=== PATIENT | male | born 1950 | race Caucasian/White ===

== ENCOUNTER → 2016-05-24 | Outpatient (CLI) | payer MEDICARE, BC ==
[2016-05-24 08:29] LABS: Blood Urea Nitrogen 25 mg/dL (9-20); Non-African American GFR(MDRD) >60 (>60 ml/min/1.73 sqM)
--- NOTE | 2016-05-24 13:24 | MR ---
MRI brain with and without contrast history: Ataxia, numbness multiplanar multisequence and postcontrast images through the brain following 15 cc MultiHance IV No comparisons Pituitary, corpus callosum, cervical medullary junction, cerebellopontine angles are normal. The orbi ts show symmetric appearance. Mild inflammatory change present in the frontal sinus, ethmoid air cell s. There is no restricted diffusion to suggest subacute ischemia. Mild cortical atrophy is likely age -related. Brain signal is maintained. No hemorrhage or hydrocephalus. No abnormal enhancement followi ng contrast administration. IMPRESSION: No significant abnormality evident to account for patient's symptoms. Age-related atrophy .
== END | disposition home or self-care (01) ==
LOC: RADMRIMAIN 07:50
PROVIDERS: ATTEND Internal Medicine
DX: G31.1 Senile degeneration of brain, not elsewhere classified (principal)
CPT/HCPCS: 82565; 84520; 70553; 36415; A9577

== ENCOUNTER → 2016-10-03 | Outpatient (CLI) | payer MEDICARE, BC ==
--- NOTE | 2016-10-03 13:57 | XR ---
Abdomen HISTORY: Constipation Frontal view of the abdomen submitted on 2 images There is a dextroscoliosis centered at T12-L1. Multiple calcifications are present within the pelvis felt likely represent phleboliths, vascular calcifications. Lung bases not included on the exam. Ques tion some loss of height of the L2 vertebral body. No obstruction or pneumoperitoneum. IMPRESSION: Possible osteoporotic compression fracture. Nonobstructive bowel gas pattern.
== END | disposition home or self-care (01) ==
LOC: RADXRMAIN 11:42
PROVIDERS: ATTEND Internal Medicine
DX: R14.0 Abdominal distension (gaseous) (principal); K59.00 Constipation, unspecified
CPT/HCPCS: 74000

== ENCOUNTER → 2016-10-04 | Outpatient (CLI) | payer MEDICARE, BC ==
--- NOTE | 2016-10-04 15:00 | XR ---
Lumbar spine HISTORY: Back pain, M 53.9 3 views of the lumbar spine There is a mild dextroscoliosis centered at L1-2. Bone mineralization is reduced. Lumbar vertebral nanette dies show preserved height and alignment. Multilevel spondylosis is present. Some loss of disc height present at intervertebral levels. Sclerosis present in the posterior elements compatible with facet arthropathy. Vascular calcifications noted in the aorta. IMPRESSION: Degenerative disc disease and facet arthropathy. Scoliosis. Osteopenia.
--- NOTE | 2016-10-04 15:02 | XR ---
Thoracic spine HISTORY: Back pain, M 54.9 3 views of the thoracic spine Thoracic vertebral bodies show preserved height. There is an S-shaped thoracic scoliosis. Thoracic ve rtebral bodies show decreased mineralization, multilevel spondylosis. No paraspinal mass. IMPRESSION: Degenerative disc disease and scoliosis. Osteopenia.
== END | disposition home or self-care (01) ==
LOC: RADXRMAIN 13:40
PROVIDERS: ATTEND Internal Medicine
DX: M51.34 Other intervertebral disc degeneration, thoracic region (principal); M51.36 Other intervertebral disc degeneration, lumbar region; M46.86 Other specified inflammatory spondylopathies, lumbar region; M85.88 Other specified disorders of bone density and structure, other site; M41.9 Scoliosis, unspecified
CPT/HCPCS: 72072; 72100

== ENCOUNTER 2016-10-08 15:07 | Emergency (ER) | payer MEDICARE, BC ==
--- NOTE | 2016-10-08 15:38 | ED ---
General Adult HPI - General Stated complaint: depression Time Seen by Provider: 10/08/16 15:10 Source: patient, RN notes reviewed Mode of arrival: ambulatory Limitations: no limitations - History of Present Illness Initial comments: Chief complaint history of present illness this is a 66-year-old male with complaint of depression. Patient reports that he was advised by his family doctor to come the emergency room for evaluation. Patient reports driving and all of a sudden just starts crying. He has no particular read. He's had a history of depression. He does see a psychiatrist and a therapist. He is on medications that include lorazepam when necessary and Lexapro. He's been on the medications that have not helped past. denies being suicidal has no plan. - Related Data Home Medications Medication Instructions Recorded Confirmed Albuterol Inhaler [Ventolin Hfa 1 - 2 puff INHALATION RT-Q6H PRN 10/08/16 Inhaler] Dextroamphetamine/Amphetamine 30 mg PO QAM 10/08/16 10/08/16 [Adderall] Escitalopram Oxalate [Lexapro] 20 mg PO QAM 10/08/16 10/08/16 LORazepam [Ativan] 0.5 mg PO BID PRN 10/08/16 10/08/16 Latanoprost [Xalatan 0.005%] 1 drop BOTH EYES HS 10/08/16 10/08/16 Levothyroxine Sodium [Synthroid] 150 mcg PO MOTUWETHFRSA 10/08/16 10/08/16 Losartan [Cozaar] 50 mg PO QAM 10/08/16 10/08/16 Polyethylene Glycol 3350 [Miralax] 17 gm PO HS 10/08/16 10/08/16 Tamsulosin HCl [Flomax] 0.4 mg PO QAM 10/08/16 10/08/16 Timolol 0.5% Ophth Soln [Timoptic 1 drop BOTH EYES QA 10/08/16 10/08/16 0.5% Ophth Soln] Vitamin B Complex 1 cap PO QAM 10/08/16 10/08/16 Allergies Allergy/AdvReac Type Severity Reaction Status Date / Time Sulfa (Sulfonamide Allergy Rash/Hives Verified 10/08/16 15:13 Antibiotics) Review of Systems ROS Statement: Those systems with pertinent positive or pertinent negative responses have been documented in the HPI. Review of systems. The patient denying any headache or visual acuity changes no sore throat no GI/ problems no chest pain no neuro deficits. Psychologically the patient reports he is depressed, cries immediately without wheezing. All systems are reviewed. Past medical problems significant for bladder cancer first operated on in the year 1999 with a recurrent one year later. He has been cancer free for the past 16 years. The patient's other medical problems fibromyalgia, glaucoma, hypertension and hypothyroidism. surgeries as noted above. Family history mother had bladder cancer. His granddaughter bipolar. Patient denies any ALLERGIES. He quit smoking 30 years ago. He is to do IV drug abuse over 33 years ago has not done any since then. Drink alcohol socially. He does state that causes fibromyalgia-related take one [place], he does use marijuana, he reports ALLERGIES to sulfa drugs. ROS Other: All systems not noted in ROS Statement are negative. Past Medical History Past Medical History: Cancer, Fibromyalgia, Hypertension, Thyroid Disorder Additional Past Medical History / Comment(s): glaucoma History of Any Multi-Drug Resistant Organisms: None Reported Past Surgical History: Bladder Surgery Past Psychological History: Depression Smoking Status: Former smoker Past Alcohol Use History: None Reported Past Drug Use History: Marijuana General Exam Limitations: no limitations Course Vital Signs 10/08/16 15:10 Temperature 98.2 F Pulse Rate 70 Respiratory 20 Rate Blood Pressure 163/83 O2 Sat by Pulse 97 Oximetry Medical Decision Making - Medical Decision Making Breath alcohol was 0, urine triage positive for medications he does admit to taking benzodiazepines, amphetamine and marijuana. Patient had a conversation with the psychiatric nurse who spoke with the psychiatrist. The plant this time patient be discharged and to follow-up with therapist, and psychiatrist. The patient denies being suicidal. - Lab Data Lab Results 10/08/16 10/08/16 Range/Units 15:52 15:55 Urine Color Dark Yellow Urine Appearance Clear (Clear) Urine pH 5.5 (5.0-8.0) Ur Specific [place] 1.021 (1.001-1.035) Urine Protein Trace H (Negative) Urine Glucose (UA) Negative (Negative) Urine Ketones Negative (Negative) Urine Blood Negative (Negative) Urine Nitrite Negative (Negative) Urine Bilirubin Negative (Negative) Urine Urobilinogen <2.0 (<2.0) mg/dL Ur Leukocyte Esterase Trace H (Negative) Urine WBC 3 (0-5) /hpf Ur Squamous Epith Cells <1 (0-4) /hpf Urine Mucus Moderate H (None) /hpf Salicylates <1.0 mg/dL Urine Opiates Screen Not Detected (NotDetected) Ur Oxycodone Screen Not Detected (NotDetected) Urine Methadone Screen Not Detected (NotDetected) Ur Propoxyphene Screen Not Detected (NotDetected) Acetaminophen <10.0 ug/mL Ur Barbiturates Screen Not Detected (NotDetected) U Tricyclic Antidepress Not Detected (NotDetected) Ur Phencyclidine Scrn Not Detected (NotDetected) Ur Amphetamines Screen Detected H (NotDetected) U Methamphetamines Scrn Not Detected (NotDetected) U Benzodiazepines Scrn Detected H (NotDetected) Urine Cocaine Screen Not Detected (NotDetected) U Marijuana (THC) Screen Detected H (NotDetected) Disposition Clinical Impression: Depression Disposition: HOME SELF-CARE Condition: Fair Instructions: Depression (ED) Additional Instructions: Return emergency room if he have increased problems. Follow-up with the psychiatrist and therapist. Continue with home medications Referrals: Dc Arreola MD [Primary Care Provider] - 1-2 days Time of Disposition: 17:42
[2016-10-08 16:24] LABS: Appearance,Urine Clear (Clear); Bilirubin,Urine Negative (Negative); Glucose,Urine (UA) Negative (Negative); Ketones,Urine Negative (Negative); Leukocyte Esterase,Urine Trace (Negative); Mucus,Urine Moderate /hpf; Nitrite,Urine Negative (Negative); PH, Urine 5.5 (5.0-8.0); Particle Count 5862; Protein,Urine Trace (Negative); Specific Gravity,Urine 1.021 (1.001-1.035); Squamous Epithelial Cell,Urine <1 /hpf (0-4); UA Billing (MACRO vs. MICRO) MICRO; Urobilinogen,Urine <2.0 mg/dL (<2.0); WBC,Urine 3 /hpf (0-5)
[2016-10-08 16:31] LABS: Acetaminophen <10.0 ug/mL; Salicylate <1.0 mg/dL
[2016-10-08 18:01] VITALS: BP 148/78; PULSE 72; RESP 18; TEMP 98.7
== END 2016-10-08 18:00 | disposition home or self-care (01) ==
LOC: EC 15:07
DX: F32.9 Major depressive disorder, single episode, unspecified (principal); E07.9 Disorder of thyroid, unspecified; I10 Essential (primary) hypertension; H40.9 Unspecified glaucoma; Z87.891 Personal history of nicotine dependence; Z79.899 Other long term (current) drug therapy; Z88.2 Allergy status to sulfonamides
CPT/HCPCS: 36415; 80306; 81001; 82075; 83520; 99284

== ENCOUNTER 2017-03-06 12:55 | Inpatient (IN) | payer MEDICARE, BC ==
--- NOTE | 2017-03-06 14:26 | ED ---
General Adult HPI - General Chief complaint: Psychiatric Symptoms Stated complaint: Depression Time Seen by Provider: 03/06/17 14:13 Source: patient, family, RN notes reviewed Mode of arrival: ambulatory Limitations: no limitations - History of Present Illness Initial comments: Patient is a pleasant [age]-year-old male presenting to the emergency Department with depression. Symptoms have been present for the past couple of days. Patient was recently let go from his job. Patient has not gotten to bed. No eating or drinking for the past couple of days. Patient has no interest. Patient did not take his medicine yesterday however otherwise has been taking his medicines normally. No suicidal or homicidal thoughts. No physical complaints. No hallucinations. No alcohol or street drug use. - Related Data Home Medications Medication Instructions Recorded Confirmed Albuterol Inhaler [Ventolin Hfa 1 - 2 puff INHALATION RT-Q6H PRN 10/08/16 Inhaler] Dextroamphetamine/Amphetamine 30 mg PO QAM 10/08/16 03/06/17 [Adderall] Escitalopram Oxalate [Lexapro] 20 mg PO QAM 10/08/16 03/06/17 Latanoprost [Xalatan 0.005%] 1 drop BOTH EYES HS 10/08/16 03/06/17 Levothyroxine Sodium [Synthroid] 150 mcg PO MOTUWETHFRSA 10/08/16 03/06/17 Losartan [Cozaar] 50 mg PO QAM 10/08/16 03/06/17 Timolol 0.5% Ophth Soln [Timoptic 1 drop BOTH EYES QAM 10/08/16 03/06/17 0.5% Ophth Soln] Vitamin B Complex 1 cap PO QAM 10/08/16 03/06/17 Ascorbic Acid [Vitamin C] 500 mg PO DAILY 03/06/17 03/06/17 Cholecalciferol [Vitamin D3] 1,000 unit PO DAILY 03/06/17 03/06/17 LORazepam [Ativan] 1 mg PO TID PRN 03/06/17 03/06/17 Petty Carbonate 150 mg PO TID 03/06/17 03/06/17 Turmeric Root Extract [Turmeric] 500 mg PO DAILY 03/06/17 03/06/17 traZODone HCL 50 mg PO HS PRN 03/06/17 03/06/17 Allergies Allergy/AdvReac Type Severity Reaction Status Date / Time Sulfa (Sulfonamide Allergy Rash/Hives Verified 03/06/17 14:37 Antibiotics) Review of Systems ROS Statement: Those systems with pertinent positive or pertinent negative responses have been documented in the HPI. ROS Other: All systems not noted in ROS Statement are negative. Constitutional: Denies: fever Eyes: Denies: eye pain ENT: Denies: ear pain Respiratory: Denies: cough Cardiovascular: Denies: chest pain Endocrine: Denies: fatigue Gastrointestinal: Denies: abdominal pain Genitourinary: Denies: dysuria Musculoskeletal: Denies: back pain Skin: Denies: rash Neurological: Denies: headache Psychiatric: Reports: depression Past Medical History Past Medical History: Cancer, Fibromyalgia, Hypertension, Thyroid Disorder Additional Past Medical History / Comment(s): glaucoma History of Any Multi-Drug Resistant Organisms: None Reported Past Surgical History: Bladder Surgery Past Psychological History: Depression Smoking Status: Former smoker Past Alcohol Use History: None Reported Past Drug Use History: None Reported General Exam Limitations: no limitations General appearance: alert, in no apparent distress Head exam: Present: atraumatic Eye exam: Present: normal appearance, PERRL ENT exam: Present: normal oropharynx Neck exam: Present: normal inspection Respiratory exam: Present: normal lung sounds bilaterally Cardiovascular Exam: Present: regular rate, normal rhythm GI/Abdominal exam: Present: soft. Absent: tenderness Extremities exam: Present: normal inspection Neurological exam: Present: alert Psychiatric exam: Present: depressed Skin exam: Present: normal color Course Vital Signs 03/06/17 03/06/17 13:41 16:09 Temperature 98.4 F Pulse Rate 76 74 Respiratory 18 18 Rate Blood Pressure 212/105 187/95 O2 Sat by Pulse 97 97 Oximetry Medical Decision Making - Medical Decision Making Patient was seen by mental health services with plan for admission. Blood pressure has improved. - Lab Data Result diagrams: 03/06/17 14:35 03/06/17 14:35 Lab Results 03/06/17 03/06/17 03/06/17 Range/Units 14:35 14:35 14:35 WBC 8.6 (3.8-10.6) k/uL RBC 5.36 (4.30-5.90) m/uL Hgb 16.0 (13.0-17.5) gm/dL Hct 48.6 (39.0-53.0) % MCV 90.7 (80.0-100.0) fL MCH 29.8 (25.0-35.0) pg MCHC 32.9 (31.0-37.0) g/dL RDW 14.3 (11.5-15.5) % Plt Count 307 (150-450) k/uL Neutrophils % 70 % Lymphocytes % 21 % Monocytes % 6 % Eosinophils % 2 % Basophils % 0 % Neutrophils # 6.1 (1.3-7.7) k/uL Lymphocytes # 1.8 (1.0-4.8) k/uL Monocytes # 0.5 (0-1.0) k/uL Eosinophils # 0.2 (0-0.7) k/uL Basophils # 0.0 (0-0.2) k/uL Sodium 142 (137-145) mmol/L Potassium 4.3 (3.5-5.1) mmol/L Chloride 107 (98-107) mmol/L Carbon Dioxide 23 (22-30) mmol/L Anion Gap 12 mmol/L BUN 29 H (9-20) mg/dL Creatinine 1.30 H (0.66-1.25) mg/dL Est GFR (MDRD) Af Amer >60 (>60 ml/min/1.73 sqM) Est GFR (MDRD) Non-Af 55 (>60 ml/min/1.73 sqM) Glucose 100 H (74-99) mg/dL Calcium 9.9 (8.4-10.2) mg/dL Urine Color Yellow Urine Appearance Clear (Clear) Urine pH 5.0 (5.0-8.0) Ur Specific [place] 1.023 (1.001-1.035) Urine Protein Trace H (Negative) Urine Glucose (UA) Negative (Negative) Urine Ketones 2+ H (Negative) Urine Blood Negative (Negative) Urine Nitrite Negative (Negative) Urine Bilirubin Negative (Negative) Urine Urobilinogen <2.0 (<2.0) mg/dL Ur Leukocyte Esterase Small H (Negative) Urine RBC 1 (0-5) /hpf Urine WBC 7 H (0-5) /hpf Ur Squamous Epith Cells <1 (0-4) /hpf Amorphous Sediment Occasional H (None) /hpf Urine Mucus Occasional H (None) /hpf Urine Opiates Screen Detected H (NotDetected) Ur Oxycodone Screen Not Detected (NotDetected) Urine Methadone Screen Not Detected (NotDetected) Ur Propoxyphene Screen Not Detected (NotDetected) Ur Barbiturates Screen Not Detected (NotDetected) U Tricyclic Antidepress Not Detected (NotDetected) Ur Phencyclidine Scrn Not Detected (NotDetected) Ur Amphetamines Screen Detected H (NotDetected) U Methamphetamines Scrn Not Detected (NotDetected) U Benzodiazepines Scrn Detected H (NotDetected) Urine Cocaine Screen Not Detected (NotDetected) U Marijuana (THC) Screen Detected H (NotDetected) Serum Alcohol <10 mg/dL Disposition Clinical Impression: Depression Disposition: TRANSFER TO PSYCH HOSP/UNIT Referrals: Dc Arreola MD [Primary Care Provider] - 1-2 days Decision Time: 16:13
[2017-03-06 14:42] LABS: Basophils % (A) 0 %; Eosinophils # (A) 0.2 k/uL (0-0.7); Eosinophils % (A) 2 %; HCT 48.6 % (39.0-53.0); Lymphocytes # (A) 1.8 k/uL (1.0-4.8); Lymphocytes % (A) 21 %; MCH 29.8 pg (25.0-35.0); MCHC 32.9 g/dL (31.0-37.0); MCV 90.7 fL (80.0-100.0); Mean Platelet Volume 7.7; Monocytes # (A) 0.5 k/uL (0-1.0); Monocytes % (A) 6 %; Neutrophils # (A) 6.1 k/uL (1.3-7.7); Neutrophils % (A) 70 %; Platelet Count 307 k/uL (150-450); RBC 5.36 m/uL (4.30-5.90); RDW 14.3 % (11.5-15.5); WBC 8.6 k/uL (3.8-10.6)
[2017-03-06 14:45] LABS: Amorphous Sediment,Urine Occasional /hpf; Appearance,Urine Clear (Clear); Bilirubin,Urine Negative (Negative); Blood,Urine Negative (Negative); Color,Urine Yellow; Glucose,Urine (UA) Negative (Negative); Ketones,Urine 2+ (Negative); Leukocyte Esterase,Urine Small (Negative); Mucus,Urine Occasional /hpf; Nitrite,Urine Negative (Negative); Protein,Urine Trace (Negative); RBC,Urine 1 /hpf (0-5); Specific Gravity,Urine 1.023 (1.001-1.035); Squamous Epithelial Cell,Urine <1 /hpf (0-4); Urobilinogen,Urine <2.0 mg/dL (<2.0); WBC,Urine 7 /hpf (0-5)
[2017-03-06 14:54] LABS: Alcohol <10 mg/dL; Anion Gap 12 mmol/L; Blood Urea Nitrogen 29 mg/dL (9-20); Calcium 9.9 mg/dL (8.4-10.2); Carbon Dioxide 23 mmol/L (22-30); Chloride 107 mmol/L (98-107); Glucose 100 mg/dL (74-99); Potassium 4.3 mmol/L (3.5-5.1); Sodium 142 mmol/L (137-145)
[2017-03-06 14:58] LABS: Amphetamine Screen,Urine Detected (NotDetected); Barbiturate Screen,Urine Not Detected (NotDetected); Benzodiazepines Screen,Urine Detected (NotDetected); Cocaine Screen,Urine Not Detected (NotDetected); Methadone Screen, Urine Not Detected (NotDetected); Opiate Screen,Urine Detected (NotDetected); Oxycodone Screen, Urine Not Detected (NotDetected); Phencyclidine Screen,Urine Not Detected (NotDetected); Tricyclic Antidepressant,Urine Not Detected (NotDetected); Urn Cannabinoid Scrn Detected (NotDetected)
[2017-03-06] MEDS ORDERED: LORazepam 1 MG TAB PO STA (16:04)
[2017-03-06] MEDS ORDERED: LOSARTAN 25 MG TAB PO STA (16:13)
[2017-03-06 18:48] VITALS: RESP 16
[2017-03-06] MEDS ORDERED: LORazepam 1 MG TAB PO PRN (19:58)
[2017-03-06] MEDS ORDERED: ACETAMINOPHEN TAB 325 MG TAB PO PRN (19:58)
[2017-03-06] MEDS ORDERED: MAGNESIUM HYDROXIDE 2,400 MG/10 ML CUP PO PRN (19:58)
[2017-03-06] MEDS ORDERED: MAG HYDROX/AL HYDROX/SIMETH 30 ML CUP PO PRN (19:58)
[2017-03-06] MEDS ORDERED: ALBUTEROL INHALER 60 PUFF/8 GM INHALER INHALATION PRN (20:04)
[2017-03-06] MEDS: TAMSULOSIN 0.4 MG CAP.ER.24H PO SCH (20:48)
[2017-03-06] MEDS: LATANOPROST 0.005% OPHTH DROPS 2.5 ML BTL BOTH EYES SCH (20:49)
[2017-03-07] MEDS: LEVOTHYROXINE 75 MCG TAB PO SCH (06:09)
[2017-03-07] MEDS: LIDOCAINE 5% PATCH TOPICAL SCH (07:44)
[2017-03-07] MEDS ORDERED: LOSARTAN 50 MG TAB PO SCH (09:00)
[2017-03-07] MEDS ORDERED: ESCITALOPRAM 20 MG TAB PO SCH (09:00)
[2017-03-07] MEDS: TIMOLOL 0.5% OPHTH DROPS 5 ML BTL BOTH EYES SCH (09:59)
[2017-03-07 10:13] LABS: Lithium <0.2 mmol/L
[2017-03-07] MEDS ORDERED: PNEUMOCOCCAL VACC-PNEUMOVAX 23 25 MCG/0.5 ML VIAL IM ONE (10:30)
--- NOTE | 2017-03-07 11:51 | P.HP ---
Psychiatric H&P - . History & Physical: Allergies Allergy/AdvReac Type Severity Reaction Status Date / Time Sulfa (Sulfonamide Allergy Rash/Hives Verified 03/06/17 18:29 Antibiotics) olanzapine [From Zyprexa] AdvReac Rapid Verified 03/06/17 20:48 Heart Rate Vital Signs Temp 97.7 F 03/07/17 06:53 Pulse 70 03/07/17 06:53 Resp 16 03/07/17 06:53 BP 114/53 03/07/17 06:53 Pulse Ox 97 03/07/17 06:53 Intake & Output 03/06/17 03/07/17 03/07/17 18:59 06:59 18:59 Weight 84 kg Laboratory Last Values WBC 8.6 k/uL (3.8-10.6) 03/06/17 14:35 RBC 5.36 m/uL (4.30-5.90) 03/06/17 14:35 Hgb 16.0 gm/dL (13.0-17.5) 03/06/17 14:35 Hct 48.6 % (39.0-53.0) 03/06/17 14:35 MCV 90.7 fL (80.0-100.0) 03/06/17 14:35 MCH 29.8 pg (25.0-35.0) 03/06/17 14:35 MCHC 32.9 g/dL (31.0-37.0) 03/06/17 14:35 RDW 14.3 % (11.5-15.5) 03/06/17 14:35 Plt Count 307 k/uL (150-450) 03/06/17 14:35 Neutrophils % 70 % 03/06/17 14:35 Lymphocytes % 21 % 03/06/17 14:35 Monocytes % 6 % 03/06/17 14:35 Eosinophils % 2 % 03/06/17 14:35 Basophils % 0 % 03/06/17 14:35 Neutrophils # 6.1 k/uL (1.3-7.7) 03/06/17 14:35 Lymphocytes # 1.8 k/uL (1.0-4.8) 03/06/17 14:35 Monocytes # 0.5 k/uL (0-1.0) 03/06/17 14:35 Eosinophils # 0.2 k/uL (0-0.7) 03/06/17 14:35 Basophils # 0.0 k/uL (0-0.2) 03/06/17 14:35 Sodium 142 mmol/L (137-145) 03/06/17 14:35 Potassium 4.3 mmol/L (3.5-5.1) 03/06/17 14:35 Chloride 107 mmol/L (98-107) 03/06/17 14:35 Carbon Dioxide 23 mmol/L (22-30) 03/06/17 14:35 Anion Gap 12 mmol/L 03/06/17 14:35 BUN 29 mg/dL (9-20) H 03/06/17 14:35 Creatinine 1.30 mg/dL (0.66-1.25) H 03/06/17 14:35 Est GFR (MDRD) Af Amer >60 (>60 ml/min/1.73 sqM) 03/06/17 14:35 Est GFR (MDRD) Non-Af 55 (>60 ml/min/1.73 sqM) 03/06/17 14:35 Glucose 100 mg/dL (74-99) H 03/06/17 14:35 Calcium 9.9 mg/dL (8.4-10.2) 03/06/17 14:35 TSH 3.830 mIU/L (0.465-4.680) 03/07/17 09:29 Urine Color Yellow 03/06/17 14:35 Urine Appearance Clear (Clear) 03/06/17 14:35 Urine pH 5.0 (5.0-8.0) 03/06/17 14:35 Ur Specific [place] 1.023 (1.001-1.035) 03/06/17 14:35 Urine Protein Trace (Negative) H 03/06/17 14:35 Urine Glucose (UA) Negative (Negative) 03/06/17 14:35 Urine Ketones 2+ (Negative) H 03/06/17 14:35 Urine Blood Negative (Negative) 03/06/17 14:35 Urine Nitrite Negative (Negative) 03/06/17 14:35 Urine Bilirubin Negative (Negative) 03/06/17 14:35 Urine Urobilinogen <2.0 mg/dL (<2.0) 03/06/17 14:35 Ur Leukocyte Esterase Small (Negative) H 03/06/17 14:35 Urine RBC 1 /hpf (0-5) 03/06/17 14:35 Urine WBC 7 /hpf (0-5) H 03/06/17 14:35 Ur Squamous Epith Cells <1 /hpf (0-4) 03/06/17 14:35 Amorphous Sediment Occasional /hpf (None) H 03/06/17 14:35 Urine Mucus Occasional /hpf (None) H 03/06/17 14:35 Urine Opiates Screen Detected (NotDetected) H 03/06/17 14:35 Ur Oxycodone Screen Not Detected (NotDetected) 03/06/17 14:35 Urine Methadone Screen Not Detected (NotDetected) 03/06/17 14:35 Ur Propoxyphene Screen Not Detected (NotDetected) 03/06/17 14:35 Ur Barbiturates Screen Not Detected (NotDetected) 03/06/17 14:35 U Tricyclic Antidepress Not Detected (NotDetected) 03/06/17 14:35 Ur Phencyclidine Scrn Not Detected (NotDetected) 03/06/17 14:35 Ur Amphetamines Screen Detected (NotDetected) H 03/06/17 14:35 U Methamphetamines Scrn Not Detected (NotDetected) 03/06/17 14:35 U Benzodiazepines Scrn Detected (NotDetected) H 03/06/17 14:35 [place] <0.2 mmol/L 03/07/17 09:29 Urine Cocaine Screen Not Detected (NotDetected) 03/06/17 14:35 U Marijuana (THC) Screen Detected (NotDetected) H 03/06/17 14:35 Serum Alcohol <10 mg/dL 03/06/17 14:35 03/07/17 11:38 IDENTIFYING DATA: This patient is a 66-year-old male who has been admitted to the mental health unit through the emergency room for severe symptoms of depression. HPI: The patient presented to the emergency room with his with severe symptoms of depression. He states he has not been eating for 3 days he has been excessively sleeping and has not been getting out of bed. He has been tearful on a regular basis. 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 He states last Monday he was suddenly told he needed to leave and turn in his keys and they called the police to escort him out. He feels he was discriminated against because he told them he was depressed several months ago. He is not able to offer any other explanation as to why they would have let him go. He does have a history of major depressive episodes as we reviewed criteria. He states in the past others have considered him having bipolar 2 disorder but he states he never has had a hypomanic or manic episode. He reports at best he approaches a feeling of being "normal" but never hypomanic or manic. We carefully described to criteria of hypomania or tova during the session. He describes having symptoms of anxiety that are frequent and he describes them as a "knot in my stomach". He does not report excessive daily anxiety that is disproportionate to daily stressors. He endorses no panic attacks. He states "I've given up" but has no acute suicidal ideation. He is reporting no homicidal ideation intent or plan. He is endorsing no auditory or visual hallucinations or specific delusions. He reports having a firearm at home, an antique shotgun which he presumes would not function. PAST PSYCHIATRIC HISTORY: This is the patient's first inpatient psychiatric admission, no history of suicide attempts. He is currently working with a psychiatrist in [place] through [facility] and has seen her 3 times. He is prescribed Lexapro 20 mg daily lithium on 150 mg in the morning 300 mg in the evening Adderall 30 mg daily trazodone 50 mg daily Ativan 1 mg twice daily. His BUN and creatinine are elevated at 29 and 1.3 respectively. He states he's had no recent blood work pertaining to the use of lithium he reports no baseline labs were drawn. He previously had been prescribed Risperdal Lamictal Zyprexa Depakote and Geodon Abilify and Wellbutrin Celexa Cymbalta and Trintellix. He has been on the Lexapro approximate 4 years, he has been on the lithium 3-4 weeks. Trazodone is effective for his sleep. Prior to his current psychiatrist he worked with Dr. Suresh at the local [facility]. PMH: Fibromyalgia, recent shoulder injury, hepatitis C, glaucoma ALLERGIES: Sulfa, Zyprexa MEDICATIONS: As above CHEMICAL DEPENDENCY HISTORY: The patient has a known history of cocaine use disorder. He had used cocaine intravenously for 1 year approximate 33 years ago. He reports using marijuana nightly. His urine drug screen was positive for opiates and benzodiazepines marijuana and amphetamines. Again he is prescribed Adderall and Ativan. He states he was using [place] 10 mg for his shoulder pain. He states that in the past he had been to inpatient chemical dependency treatment 4 times. FAMILY PSYCHIATRIC HISTORY: His father was diagnosed with an unknown psychiatric illness and was hospitalized, no suicides in the family FAMILY CHEMICAL DEPENDENCY HISTORY: His father was known to have an alcohol use disorder SOCIAL HISTORY: The patient is 66 years old he's been for 42 years and characterizes his marriage as being "good". He has 2 stepchildren and 1 biologic daughter. He has no history of service. He has his pharmacy degree from [employer] and also a master's in clinical psychology from [employer] he has 1 sister. 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 He resides with his . He reports one arrest for possession of marijuana several years ago, no abuse history reported. MENTAL STATUS EXAM: The patient is a male appearing his stated age he is dressed in his own clothing he wears eyeglasses he seated calmly. He is quiet and soft-spoken but does participate in the interview appropriately. He endorses a depressed mood he demonstrates brief tearfulness during the session. He otherwise maintains a bland affect. He endorses some hopelessness thinking but no acute suicidal ideation he endorses no homicidal ideation at this time. He is reporting no auditory or visual hallucinations or specific delusions there is no observable evidence of psychosis. Thought process is linear and goal-directed. He demonstrates no tangential thinking loose associations or flight of ideas. There is no current evidence of hypomania or tova. He is oriented to person place and date. He is able spell world forwards and backwards. He demonstrates no verbal or physical aggressiveness and he demonstrates no abnormal involuntary movements. STRENGTHS/WEAKNESSES: Strengths: Housing, support from spouse weaknesses: Recent termination from volunteer work INTELLECTUAL FUNCTIONING: Above average IMPRESSIONS: [] 1. Major depressive disorder recurrent severe without psychosis, rule out bipolar depression, anxiety unspecified, rule out generalized anxiety disorder, cocaine use disorder, rule out marijuana use disorder 2. Medical comorbidities including fibromyalgia, hepatitis C, history of shoulder injury 3. Recent termination from volunteer work precipitating crisis PLAN: The patient has been admitted to the mental health unit he is here voluntarily. We reviewed his presenting symptoms and medication options. As his BUN and creatinine were elevated we have held the lithium. He is encouraged to hydrate we will recheck his labs tomorrow. We will consider restarting lithium if appropriate. We have decided we will cross taper off of Lexapro and onto Zoloft. We will prescribe Zoloft to address depressive and anxiety symptoms. His Adderall will be discontinued. His blood pressure was remarkably elevated upon admission to the hospital and that has been slowly improving. Trazodone will be continued 50 mg at bedtime. Ativan is available 1 mg up to twice daily he is encouraged to minimize that as much is possible. Social work will meet with the patient to complete a psychosocial assessment. He will be seen by internal medicine for routine history and physical exam. We will involve family in treatment and discharge planning as he will allow. We will monitor him for safety and encourage his full participation in the milieu.
[2017-03-07 12:34] LABS: Anion Gap 10 mmol/L; Blood Urea Nitrogen 33 mg/dL (9-20); Calcium 9.7 mg/dL (8.4-10.2); Carbon Dioxide 24 mmol/L (22-30); Chloride 103 mmol/L (98-107); Glucose 213 mg/dL (74-99); Potassium 4.4 mmol/L (3.5-5.1); Sodium 137 mmol/L (137-145)
[2017-03-07] MEDS: ASCORBIC ACID 500 MG TAB PO SCH (12:51)
[2017-03-07] MEDS: CHOLECALCIFEROL 1,000 UNIT TAB PO SCH (12:52)
[2017-03-07] MEDS: B COMPLEX-VIT C-VIT E-ZINC 1 EACH TAB PO SCH (12:52)
--- NOTE | 2017-03-07 13:32 | P.MDCNMH ---
History of Present Illness H&P Date: 03/07/17 Chief Complaint: Depression This is a 66-year-old male patient of Dr. Escamilla with a past medical history of fibromyalgia and chronic fatigue syndrome, hypertension, hypothyroidism, glaucoma, hepatitis C to be seen by Dr. 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 Patient states that he has been depressed and very stressed as he has been doing work at [employer] for 12 years and suddenly they told him that he had to leave and could not come back. He states that he slept for 2 days because he was so depressed and ended up having a blood pressure of 200 systolic. Patient has not been taking his medications. Family brought him into [facility] emergency center. Blood pressure was 212/105 and creatinine was 1.3. Patient denies any kidney problems in the past but he states that his urine has been dark and he has not been drinking any water for the past 2 days. Patient was given oral losartan in the emergency center and had not been admitted to the mental health unit. Patient also states that he hurt his shoulder when he was moving furniture and fell on couple weeks ago and has taken [place] for this. Urine drug screen is positive for opiates, amphetamines, benzodiazepines, marijuana. Review of Systems All systems: negative Constitutional: Reports poor appetite, Denies chills, Denies fever Eyes: denies blurred vision, denies pain Ears, nose, mouth and throat: Denies headache, Denies sore throat Cardiovascular: Denies chest pain, Denies decreased exercise tolerance, Denies dyspnea on exertion, Denies edema, Denies leg edema, Denies lightheadedness, Denies shortness of breath, Denies syncope Respiratory: Denies cough, Denies cough with sputum, Denies dyspnea, Denies excessive sputum, Denies hemoptysis, Denies home oxygen Gastrointestinal: Reports loss of appetite, Denies abdominal pain, Denies diarrhea, Denies jaundice, Denies nausea, Denies vomiting Genitourinary: Denies dysuria Musculoskeletal: Denies myalgias Integumentary: Denies pruritus, Denies rash Neurological: Denies numbness, Denies weakness Psychiatric: Reports depression, Reports hypersomnia, Denies anxiety Endocrine: Denies fatigue, Denies weight change Past Medical History Past Medical History: Cancer, Fibromyalgia, Hypertension, Thyroid Disorder Additional Past Medical History / Comment(s): glaucoma, recent diagnosis of hepatitis C to follow with Dr. Deras History of Any Multi-Drug Resistant Organisms: None Reported Past Surgical History: Bladder Surgery, Tonsillectomy Additional Past Surgical History / Comment(s): Bladder surgery: 2003-Tumors removed. Past Anesthesia/Blood Transfusion Reactions: No Reported Reaction Past Psychological History: Depression Smoking Status: Former smoker Past Alcohol Use History: None Reported Additional Past Alcohol Use History / Comment(s): Patient was a smoker one and half packs per day for 15 years and quit about 30 years ago. He denies any alcohol use. 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 He does use marijuana daily to help him sleep and he has a medical marijuana card. Patient was at home with his . Past Drug Use History: Marijuana Additional Drug Use History / Comment(s): UDS + THC, benzos, opiates, amphetamines, - Past Family History Father Family Medical History: No Reported History Additional Family Medical History / Comment(s): Father from heart failure. Mother Family Medical History: Cancer Additional Family Medical History / Comment(s): at age 84 from lung cancer. Sister(s) Additional Family Medical History / Comment(s): Patient has 1 sister with no major medical problems. He does not have any brothers. Patient has 2 daughters and 1 son with no major medical problems. Medications and Allergies Home Medications Medication Instructions Recorded Confirmed Type Albuterol Inhaler [Ventolin Hfa 1 - 2 puff INHALATION RT-Q6H PRN 10/08/16 History Inhaler] Dextroamphetamine/Amphetamine 30 mg PO QAM 10/08/16 03/06/17 History [Adderall] Escitalopram Oxalate [Lexapro] 20 mg PO QAM 10/08/16 03/06/17 History Latanoprost [Xalatan 0.005%] 1 drop BOTH EYES HS 10/08/16 03/06/17 History Levothyroxine Sodium [Synthroid] 150 mcg PO MOTUWETHFRSA 10/08/16 03/06/17 History Losartan [Cozaar] 50 mg PO QAM 10/08/16 03/06/17 History Timolol 0.5% Ophth Soln [Timoptic 1 drop BOTH EYES QAM 10/08/16 03/06/17 History 0.5% Ophth Soln] Vitamin B Complex 1 cap PO QAM 10/08/16 03/06/17 History Ascorbic Acid [Vitamin C] 500 mg PO DAILY 03/06/17 03/06/17 History Cholecalciferol [Vitamin D3] 1,000 unit PO DAILY 03/06/17 03/06/17 History LORazepam [Ativan] 1 mg PO BID 03/06/17 03/06/17 History Levothyroxine Sodium [Synthroid] 75 mcg PO TAYLOR 03/06/17 03/06/17 History [place] Carbonate 150 mg PO DAILY 03/06/17 03/06/17 History [place] Carbonate 300 mg PO HS 03/06/17 03/06/17 History Tamsulosin HCl [Flomax] 0.4 mg PO HS 03/06/17 03/06/17 History Turmeric Root Extract [Turmeric] 500 mg PO DAILY 03/06/17 03/06/17 History traZODone HCL 50 mg PO HS PRN 03/06/17 03/06/17 History Allergies Allergy/AdvReac Type Severity Reaction Status Date / Time Sulfa (Sulfonamide Allergy Rash/Hives Verified 03/06/17 18:29 Antibiotics) olanzapine [From Zyprexa] AdvReac Rapid Verified 03/06/17 20:48 Heart Rate Physical Exam Vitals: Vital Signs Temp Pulse Pulse Resp BP BP Pulse Ox 03/07/17 06:53 97.7 F 70 16 114/53 97 03/06/17 18:47 99.1 F 81 16 166/95 97 03/06/17 18:03 97.6 F 73 18 172/89 98 03/06/17 16:09 74 18 187/95 97 03/06/17 13:41 98.4 F 76 18 212/105 97 Intake and Output 03/06/17 03/07/17 03/07/17 22:59 06:59 14:59 Other: Weight 84 kg Gen: This is a 66-year-old male. He is cooperative. HEENT: Head is atraumatic, normocephalic. Pupils equal, round. Sclerae is anicteric. NECK: Supple. No JVD. No lymphadenopathy. No thyromegaly. LUNGS: Clear to auscultation. No wheezes or rhonchi. No intercostal retractions. HEART: Regular rate and rhythm. No murmur. ABDOMEN: Soft. Bowel sounds are present. No masses. No tenderness. EXTREMITIES: No pedal edema. No calf tenderness. NEUROLOGICAL: Patient is awake, alert and oriented x3. Cranial nerves 2 through 12 are grossly intact. Cranial Nerve Examination - Cranial Nerves Cranial Nerve II- Optic: Intact Cranial Nerve III- Oculomotor: Intact Cranial Nerve IV- Trochlear: Intact Cranial Nerve V- Trigeminal: Intact Cranial Nerve - Abducens: Intact Cranial Nerve VII- Facial: Intact Cranial Nerve VIII- Auditory: Intact Cranial Nerve IX- Glossopharyngeal: Intact Cranial Nerve X- Vagus: Intact Cranial Nerve XI- Accessory: Intact Cranial Nerve XII- Hypoglossal: Intact Results CBC & Chem 7: 03/06/17 14:35 03/07/17 09:29 Labs: Abnormal Lab Results - Last 24 Hours (Table) 03/06/17 03/06/17 Range/Units 14:35 14:35 BUN 29 H (9-20) mg/dL Creatinine 1.30 H (0.66-1.25) mg/dL Glucose 100 H (74-99) mg/dL Urine Protein Trace H (Negative) Urine Ketones 2+ H (Negative) Ur Leukocyte Esterase Small H (Negative) Urine WBC 7 H (0-5) /hpf Amorphous Sediment Occasional H (None) /hpf Urine Mucus Occasional H (None) /hpf Urine Opiates Screen Detected H (NotDetected) Ur Amphetamines Screen Detected H (NotDetected) U Benzodiazepines Scrn Detected H (NotDetected) U Marijuana (THC) Screen Detected H (NotDetected) Microbiology - Last 24 Hours (Table) 03/06/17 14:35 Urine Culture - Preliminary Urine,Clean Catch Assessment and Plan Plan: 1. Recurrent depression. Patient admitted to the mental health unit. Continue current plan of care per psychiatrist. 2. Accelerated hypertension secondary to noncompliance with medication. Losartan will be discontinued due to renal failure and patient started on Norvasc with parameters to hold if systolic blood pressure less than 110. 3. Acute kidney injury secondary to dehydration and poor oral intake. Patient encouraged to increase fluid intake. Losartan has been discontinued. 4. Hypothyroidism with normal TSH. Continue current dose of levothyroxine. 5. Glaucoma. Continue eyedrops. 6. Shoulder pain secondary to recent fall. Continue lidocaine patch. No [place]. 7. Fibromyalgia, stable. 8. Benign prostatic hypertrophy. Continue Flomax. Impression and plan of care have been directed as dictated by the signing physician. Alma Joel nurse practitioner acting as scribe for signing physician.
[2017-03-07] MEDS: TAMSULOSIN 0.4 MG CAP.ER.24H PO SCH (20:20)
[2017-03-07] MEDS: LATANOPROST 0.005% OPHTH DROPS 2.5 ML BTL BOTH EYES SCH (20:21)
[2017-03-07] MEDS: ACETAMINOPHEN TAB 500 MG TAB PO PRN (20:40)
[2017-03-07] MEDS: traZODone HCL 50 MG TAB PO PRN (21:35)
[2017-03-08] MEDS: LEVOTHYROXINE 75 MCG TAB PO SCH (05:39)
[2017-03-08] MEDS: ACETAMINOPHEN TAB 500 MG TAB PO PRN ×2 (06:05→16:36)
[2017-03-08] MEDS: LIDOCAINE 5% PATCH TOPICAL SCH (09:23)
[2017-03-08] MEDS: TIMOLOL 0.5% OPHTH DROPS 5 ML BTL BOTH EYES SCH (09:24)
[2017-03-08] MEDS: SERTRALINE 25 MG TAB PO SCH (09:25)
[2017-03-08] MEDS: amLODIPine 5 MG TAB PO SCH (09:25)
[2017-03-08] MEDS: ESCITALOPRAM 10 MG TAB PO SCH (09:25)
--- NOTE | 2017-03-08 09:26 | P.PN ---
Progress Note - Text Interval history: The patient is found in group he follows me to an interview room. He reports that he had some difficulty sleeping last night per staff reported 6 hours. He notes having a phone conversation with his which was supportive. He looks forward to her visit this evening. We reviewed her medication changes. His BUN is elevated creatinine has normalized he is trying to hydrate better. He reports eating breakfast this morning. He states he has no acute suicidal ideation and when he presented he does have thoughts of giving up. He states that he realizes he cannot do that and needs to process his grief further. Mental status exam: The patient is alert he seated calmly eye contact is appropriate. Speech is fluent spontaneous nonpressured. He reports a depressed mood he is endorsing no suicidal or homicidal ideation intent or plan. He is reporting no auditory or visual hallucinations or specific delusions there is no observed evidence of psychosis. He demonstrates no tangential thinking loose associations or flight of ideas. Insight and judgment are improving. He remains oriented to person place and date. Affect is constricted but demonstrate some mild range at times. Plan: The patient will continue on his current medications. We plan on discontinuing the Lexapro tomorrow and increasing the Zoloft tomorrow. We will have social work facilitate a support meeting involving his . We will monitor him for safety and encourage participation in the milieu. Depending on his clinical status he may be appropriate for discharge in the next 1-2 days.
[2017-03-08 11:16] LABS: Blood Urea Nitrogen 34 mg/dL (9-20)
[2017-03-08] MEDS: CHOLECALCIFEROL 1,000 UNIT TAB PO SCH (11:47)
[2017-03-08] MEDS: ASCORBIC ACID 500 MG TAB PO SCH (11:47)
[2017-03-08] MEDS: B COMPLEX-VIT C-VIT E-ZINC 1 EACH TAB PO SCH (11:47)
[2017-03-08] MEDS: TAMSULOSIN 0.4 MG CAP.ER.24H PO SCH (20:50)
[2017-03-08] MEDS: LATANOPROST 0.005% OPHTH DROPS 2.5 ML BTL BOTH EYES SCH (20:50)
[2017-03-08] MEDS: traZODone HCL 50 MG TAB PO PRN (20:50)
[2017-03-09] MEDS: ACETAMINOPHEN TAB 500 MG TAB PO PRN ×2 (00:10→10:56)
[2017-03-09] MEDS: LEVOTHYROXINE 75 MCG TAB PO SCH (06:31)
[2017-03-09 06:55] VITALS: TEMP 98.6
[2017-03-09] MEDS: LIDOCAINE 5% PATCH TOPICAL SCH (08:32)
[2017-03-09] MEDS: amLODIPine 5 MG TAB PO SCH (08:34)
[2017-03-09] MEDS: TIMOLOL 0.5% OPHTH DROPS 5 ML BTL BOTH EYES SCH (08:35)
[2017-03-09] MEDS: SERTRALINE 25 MG TAB PO SCH (08:36)
--- NOTE | 2017-03-09 09:07 | P.DS ---
Providers Date of admission: 03/06/17 18:10 Expected date of discharge: 03/09/17 Attending physician: Shawn Oakley Consults: 03/06/17 19:58 Consult Physician Routine Consulting Provider: Dc Arreola Consult Reason/Comments: medical management Do you want consulting provider notified?: Already Contacted Primary care physician: Dc Maxwell - Discharge Diagnosis(es) (1) Major depressive disorder, recurrent severe without psychotic features Current Visit: Yes Status: Acute Priority: High Hospital Course: Brief summary admission note: This patient is a 66-year-old male who is been admitted to the mental health unit through the emergency room for severe symptoms of depression. He had presented with his and I indicated he had not been eating for 3 days he had been excessively sleeping and has not been getting out of bed. He had been tearful constantly. 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 The previous Monday he states he was suddenly told to leave and the police were called to escort him out. He felt he was discriminated against because he hadn't spoken of his depression several months ago. For full details please refer to my psychiatric evaluation dated . Summary of hospital course: The patient was admitted to the mental health unit he signed in voluntarily. We reviewed his presenting symptoms and medication options. We entertain the idea of him having a bipolar 2 disorder however he did not indicate he has had hypomanic episodes. He referred to episodes of "high" but really this seemed to be an approximation to baseline or normal from the depression. He indicated he had been on Lexapro for 4 years and this did not seem to be improving his depression well enough. He had recently been placed on lithium as an augmentation strategy. He indicates no blood work had been drawn yet and here in the hospital he presented with an elevated BUN/ creatinine creatinine. These have remained elevated despite his efforts to hydrate. We discontinued the lithium. Lexapro was tapered off and we initiated Zoloft to address his symptoms of depression and anxiety. Trazodone was continued at bedtime. Ativan was continued as needed but he is encouraged to minimize that whenever possible. The patient also presented to the hospital with a significantly elevated blood pressure of greater than 200/100. We discontinued the Adderall. Adderall may have been contributing to the elevated blood pressure and pulse. During the hospitalization he felt he did not need the Adderall to maintain alertness. Again we discussed removing it so that he is not on yet another habit-forming substances. He indicated the [place] was temporary for his shoulder injury. During the course of the hospitalization the patient noted a progressive improvement of his mood he felt as though the severe symptoms of depression were abating. He has had a visit from his social work will conduct a support meeting involving his . He has an outpatient therapist and psychiatrist whom he plans to continue working with. He has engaged in future oriented thinking. Mental status exam: The patient is alert he seated calmly he's pleasant and cooperative. Eye contact is appropriate speech is fluent spontaneous nonpressured. He indicates his mood is better he is endorsing no acute suicidal or homicidal ideation intent or plan. He endorses no auditory or visual hallucinations or any specific delusions and there is no observed evidence of psychosis. His thought process is linear and goal-directed he demonstrates no tangential thinking loose associations or flight of ideas. He remains oriented to person place and date. He demonstrates no verbal or physical aggressiveness. Affect is appropriately expressive. Hygiene and grooming are good. Impressions 1. Major depressive disorder recurrent severe without psychosis, rule out bipolar depression, anxiety and specified rule out generalized anxiety disorder , cocaine use disorder in remission, rule out cannabis use disorder 2. Medical comorbidities including fibromyalgia hepatitis C history of shoulder injury, recently elevated BUN/creatinine 3. Recent termination from volunteer work Plan: The patient will be discharged mental health unit today to return home residing with his . He will continue following up with his established therapist and psychiatrist through [facility] in [place]. He will continue on Zoloft and we will titrate this to 100 mg daily Lexapro has been discontinued. He will continue on trazodone 50 mg at bedtime as needed for sleep. He has Ativan prescribed 1 mg twice daily as needed he is encouraged to minimize that whenever possible. There is no imminent safety risk he is appropriate for continued care as an outpatient. He is instructed to return to the hospital with any acute safety concerns. He is instructed to follow-up with his primary care physician regarding his elevated BUN/creatinine creatinine and he indicates that he will. Patient Condition at Discharge: Stable Plan - Discharge Summary Discharge Rx Participant: No New Discharge Prescriptions: New Sertraline [Zoloft] 100 mg PO DAILY #30 tab traZODone HCL [Desyrel] 50 mg PO HS PRN #30 tab PRN Reason: Insomnia Continue Latanoprost [Xalatan 0.005%] 1 drop BOTH EYES HS Vitamin B Complex 1 cap PO QAM Timolol 0.5% Ophth Soln [Timoptic 0.5% Ophth Soln] 1 drop BOTH EYES QAM Albuterol Inhaler [Ventolin Hfa Inhaler] 1 - 2 puff INHALATION RT-Q6H PRN PRN Reason: Allergy Symptoms Levothyroxine Sodium [Synthroid] 150 mcg PO MOTUWETHFRSA Losartan [Cozaar] 50 mg PO QAM Turmeric Root Extract [Turmeric] 500 mg PO DAILY Cholecalciferol [Vitamin D3] 1,000 unit PO DAILY Ascorbic Acid [Vitamin C] 500 mg PO DAILY LORazepam [Ativan] 1 mg PO BID Tamsulosin HCl [Flomax] 0.4 mg PO HS Levothyroxine Sodium [Synthroid] 75 mcg PO TAYLOR Discontinued Escitalopram Oxalate [Lexapro] 20 mg PO QAM Dextroamphetamine/Amphetamine [Adderall] 30 mg PO QAM traZODone HCL 50 mg PO HS PRN PRN Reason: Insomnia [place] Carbonate 150 mg PO DAILY [place] Carbonate 300 mg PO HS Discharge Medication List Albuterol Inhaler [Ventolin Hfa Inhaler] 1 - 2 puff INHALATION RT-Q6H PRN [History] Latanoprost [Xalatan 0.005%] 1 drop BOTH EYES HS 10/08/16 [History] Levothyroxine Sodium [Synthroid] 150 mcg PO MOTUWETHFRSA 10/08/16 [History] Losartan [Cozaar] 50 mg PO QAM 10/08/16 [History] Timolol 0.5% Ophth Soln [Timoptic 0.5% Ophth Soln] 1 drop BOTH EYES QAM [History] Vitamin B Complex 1 cap PO QAM 10/08/16 [History] Ascorbic Acid [Vitamin C] 500 mg PO DAILY 03/06/17 [History] Cholecalciferol [Vitamin D3] 1,000 unit PO DAILY 03/06/17 [History] LORazepam [Ativan] 1 mg PO BID 03/06/17 [History] Levothyroxine Sodium [Synthroid] 75 mcg PO TAYLOR 03/06/17 [History] Tamsulosin HCl [Flomax] 0.4 mg PO HS 03/06/17 [History] Turmeric Root Extract [Turmeric] 500 mg PO DAILY 03/06/17 [History] Sertraline [Zoloft] 100 mg PO DAILY #30 tab 03/09/17 [Rx] traZODone HCL [Desyrel] 50 mg PO HS PRN #30 tab 03/09/17 [Rx] Follow up Appointment(s)/Referral(s): Larry Valle [Outside] - 03/15/17 3:00 pm (Lori) Dc Arreola MD [Primary Care Provider] - 1-2 days
[2017-03-09] MEDS: ESCITALOPRAM 10 MG TAB PO SCH (10:08)
[2017-03-09 10:40] VITALS: BP 141/72; PULSE 80
--- NOTE | 2017-03-09 13:14 | P.PN ---
Subjective This is a 66-year-old male patient of Dr. Arreola'kin with a past medical history of fibromyalgia and chronic fatigue syndrome, hypertension, hypothyroidism, glaucoma, hepatitis C to be seen by Dr. 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 Patient states that he has been depressed and very stressed as he has been doing work at [employer] for 12 years and suddenly they told him that he had to leave and could not come back. He states that he slept for 2 days because he was so depressed and ended up having a blood pressure of 200 systolic. Patient has not been taking his medications. Family brought him into [facility] emergency center. Blood pressure was 212/105 and creatinine was 1.3. Patient denies any kidney problems in the past but he states that his urine has been dark and he has not been drinking any water for the past 2 days. Patient was given oral losartan in the emergency center and had not been admitted to the mental health unit. Patient also states that he hurt his shoulder when he was moving furniture and fell on couple weeks ago and has taken [place] for this. Urine drug screen is positive for opiates, amphetamines, benzodiazepines, marijuana. 03/09: We have been asked to reassess the patient for redness to his left upper arm. Patient did receive a pneumonia vaccine 2 days ago in the left deltoid but there is no erythema or swelling at this area. This is most likely from a superficial phlebitis from previous IV site. Prescription for Duricef has been provided. Renal function shows a BUN of 34 and creatinine 1.37. Patient has been encouraged to increase oral intake at home. Patient is already scheduled for discharge. Objective - Vital Signs Vital signs: Vital Signs Temp 98.6 F 03/09/17 06:54 Pulse 80 03/09/17 08:35 Resp 16 03/09/17 08:35 BP 141/72 03/09/17 08:35 Pulse Ox 97 03/07/17 06:53 - Exam Gen: This is a 66-year-old male. He is cooperative. HEENT: Head is atraumatic, normocephalic. Pupils equal, round. Sclerae is anicteric. NECK: Supple. No JVD. No lymphadenopathy. No thyromegaly. LUNGS: Clear to auscultation. No wheezes or rhonchi. No intercostal retractions. HEART: Regular rate and rhythm. No murmur. ABDOMEN: Soft. Bowel sounds are present. No masses. No tenderness. EXTREMITIES: No pedal edema. No calf tenderness. Left upper arm has erythema and edema. No redness or erythema at the site of pneumonia vaccine in the left deltoid. NEUROLOGICAL: Patient is awake, alert and oriented x3. Cranial nerves 2 through 12 are grossly intact. - Labs CBC & Chem 7: 03/06/17 14:35 03/08/17 10:36 Assessment and Plan Plan: 1. Recurrent depression. Patient admitted to the mental health unit. Continue current plan of care per psychiatrist. 2. Accelerated hypertension secondary to noncompliance with medication. Losartan will be discontinued due to renal failure and patient started on Norvasc with parameters to hold if systolic blood pressure less than 110. 3. Acute kidney injury secondary to dehydration and poor oral intake. Patient encouraged to increase fluid intake. Losartan has been discontinued. 4. Hypothyroidism with normal TSH. Continue current dose of levothyroxine. 5. Glaucoma. Continue eyedrops. 6. Shoulder pain secondary to recent fall. Continue lidocaine patch. No [place]. 7. Fibromyalgia, stable. 8. Benign prostatic hypertrophy. Continue Flomax. 9. Left upper arm superficial phlebitis. Duricef prescription provided and sent to his pharmacy. Impression and plan of care have been directed as dictated by the signing physician. Alma Joel nurse practitioner acting as scribe for signing physician.
[2017-03-12] MEDS ORDERED: LEVOTHYROXINE 75 MCG TAB PO SCH (06:30)
== END 2017-03-09 12:45 | disposition home or self-care (01) | DRG 885 ==
LOC: EC 12:55 → 3MHU 18:10
PROVIDERS: ADMIT Psychiatry & Neurology Psychiatry; ATTEND Psychiatry & Neurology Psychiatry
PROC: 3E0234Z Introduction of Serum, Toxoid and Vaccine into Muscle, Percutaneous Approach (ICD-10-PCS; principal; 2017-03-06)
DX: F33.2 Major depressive disorder, recurrent severe without psychotic features (principal); N17.9 Acute kidney failure, unspecified; Z91.14 Patient's other noncompliance with medication regimen; I80.8 Phlebitis and thrombophlebitis of other sites; B19.20 Unspecified viral hepatitis C without hepatic coma; M79.7 Fibromyalgia; Z23 Encounter for immunization; E86.0 Dehydration; R53.82 Chronic fatigue, unspecified; E03.9 Hypothyroidism, unspecified; I10 Essential (primary) hypertension; H40.9 Unspecified glaucoma; N40.0 Benign prostatic hyperplasia without lower urinary tract symptoms; M25.519 Pain in unspecified shoulder; F11.21 Opioid dependence, in remission; Z79.899 Other long term (current) drug therapy; Z85.51 Personal history of malignant neoplasm of bladder; Z87.891 Personal history of nicotine dependence; Z88.2 Allergy status to sulfonamides; Z88.8 Allergy status to other drugs, medicaments and biological substances
CPT/HCPCS: 36415; 80048; 80178; 80306; 80320; 81001; 82075; 82565; 84443; 84520; 85025; 87086; 90732; 99285

== ENCOUNTER → 2017-04-13 | Outpatient (CLI) | payer MEDICARE, BC ==
[2017-04-13 10:35] LABS: Albumin 4.3 g/dL (3.5-5.0); Bilirubin, Delta 0.3 mg/dL (0.0-0.2); Bilirubin,Unconjugated 0.1 mg/dL (0.0-1.1); HCT 42.3 % (39.0-53.0); MCH 30.7 pg (25.0-35.0); MCHC 33.2 g/dL (31.0-37.0); MCV 92.3 fL (80.0-100.0); Mean Platelet Volume 7.1; Platelet Count 215 k/uL (150-450); RBC 4.58 m/uL (4.30-5.90); RDW 13.7 % (11.5-15.5); Total Bilirubin 0.4 mg/dL (0.2-1.3); Total Protein 7.2 g/dL (6.3-8.2); WBC 5.5 k/uL (3.8-10.6)
== END | disposition home or self-care (01) ==
LOC: LABWHC1 09:45
PROVIDERS: ATTEND Physician Assistant
DX: Z09 Encounter for follow-up examination after completed treatment for conditions other than malignant neoplasm (principal); Z86.19 Personal history of other infectious and parasitic diseases
CPT/HCPCS: 36415; 80076; 85027; 87522

== ENCOUNTER → 2017-08-17 | Outpatient (CLI) | payer MEDICARE, BC ==
[2017-08-17 10:12] LABS: Albumin 4.3 g/dL (3.5-5.0); Calcium 9.9 mg/dL (8.4-10.2); Magnesium 1.9 mg/dL (1.6-2.3); Potassium 4.7 mmol/L (3.5-5.1); Total Bilirubin 0.5 mg/dL (0.2-1.3); Total Protein 7.1 g/dL (6.3-8.2)
[2017-08-17 10:25] LABS: Appearance,Urine Clear (Clear); Bilirubin,Urine Negative (Negative); Blood,Urine Negative (Negative); Color,Urine Yellow; Glucose,Urine (UA) Negative (Negative); Ketones,Urine Negative (Negative); Leukocyte Esterase,Urine Negative (Negative); Nitrite,Urine Negative (Negative); PH, Urine 6.5 (5.0-8.0); Protein,Urine Negative (Negative); Specific Gravity,Urine 1.016 (1.001-1.035); Urobilinogen,Urine <2.0 mg/dL (<2.0)
[2017-08-17 10:28] LABS: T4, Free (Free Thyroxine) 0.84 ng/dL (0.78-2.19)
[2017-08-17 11:10] LABS: Basophils % (A) 1 %; Eosinophils # (A) 0.2 k/uL (0-0.7); Eosinophils % (A) 4 %; HCT 43.8 % (39.0-53.0); HGB 14.8 gm/dL (13.0-17.5); Lymphocytes # (A) 1.8 k/uL (1.0-4.8); Lymphocytes % (A) 27 %; MCH 30.4 pg (25.0-35.0); MCHC 33.7 g/dL (31.0-37.0); MCV 90.1 fL (80.0-100.0); Mean Platelet Volume 7.3; Monocytes # (A) 0.4 k/uL (0-1.0); Monocytes % (A) 5 %; Neutrophils # (A) 4.2 k/uL (1.3-7.7); Neutrophils % (A) 62 %; Platelet Count 251 k/uL (150-450); RBC 4.86 m/uL (4.30-5.90); WBC 6.7 k/uL (3.8-10.6)
[2017-08-17 20:00] LABS: Hemoglobin A1C 5.3 % (4.0-6.0)
[2017-08-18 14:37] LABS: Hepatits C Virus RNA Not detected (Not detected); Hepatits C Virus RNA, Quant <12 IU/mL (<12); LOG HCV IU/mL <1.08 (<1.08)
== END | disposition home or self-care (01) ==
LOC: LABWHC1 09:37
PROVIDERS: ATTEND Physician Assistant
DX: B18.2 Chronic viral hepatitis C (principal); I10 Essential (primary) hypertension; E78.00 Pure hypercholesterolemia, unspecified; F32.9 Major depressive disorder, single episode, unspecified; E03.9 Hypothyroidism, unspecified
CPT/HCPCS: 36415; 80053; 80061; 81003; 82550; 83036; 83735; 84439; 84443; 84550; 85025; 86803; 87522

== ENCOUNTER → 2017-11-15 | Outpatient (CLI) | payer MEDICARE, BC ==
--- NOTE | 2017-11-15 11:59 | XR ---
Right foot HISTORY: Heel pain, bone spur 3 views of the right foot There is a plantar calcaneal spur present. Bone mineralization and alignment are maintained. Mild ost eophytic change present the first metatarsophalangeal joint. No fracture or dislocation. Small ossifi c densities medial to the distal interphalangeal joints of the second and third digits are well-corti cated and not felt likely to be acute. IMPRESSION: Plantar calcaneal spur.
== END | disposition home or self-care (01) ==
LOC: RADXRMAIN 10:16
PROVIDERS: ATTEND Internal Medicine
DX: M77.31 Calcaneal spur, right foot (principal)

== ENCOUNTER 2018-04-03 09:32 | Day surgery (SDC) | payer MEDICARE, BC ==
[2018-03-30 10:23] VITALS: BMI 29.5
[2018-04-03] MEDS ORDERED: LACTATED RINGERS 1,000 ML IV SCH (10:36)
[2018-04-03 10:41] VITALS: RESP 18; TEMP 97.4
[2018-04-03] MEDS ORDERED: LACTATED RINGERS 1,000 ML IV ONE (11:06)
[2018-04-03] MEDS ORDERED: LIDOCAINE 1% 20 ML VIAL (10MG/ML) FOR IV START INTRADERMA ONE (11:06)
[2018-04-03] MEDS ORDERED: PROPOFOL 10 MG/ML 20 ML VIAL IV ONE (11:08)
--- NOTE | 2018-04-03 11:38 | P.PCN ---
Date of Procedure: 04/03/18 Procedure(s) Performed: Procedure: Total colonoscopy. Preoperative diagnosis: Screening for neoplasia. Postoperative diagnosis: Exam within normal limits. Preparation: HalfLytely prep. Sedation: Was provided by anesthesia. Brief clinical history: The patient is 67-year-old male who is scheduled for this evaluation for screening for neoplasia. He had two prior exams the last was around 8 years ago from his recollection. He has no abdominal complaints, bleeding or anemia. Procedure: With the patient on his left lateral decubitus position and after informed consent and adequate sedation, the perianal area was inspected and it did not show any fissures or fistulas. There were no masses felt on digital rectal examination. The Olympus CFH 190L video colonoscope was then inserted in the rectum in the usual fashion and advanced to the cecum. The mucosa appeared healthy. No polyps or tumors were seen or any obvious diverticular disease or other pathology. I retroflexed the endoscope in the rectum before the endoscope was withdrawn. The patient tolerated the procedure well. Plan: The patient was reassured. He will follow up with you as planned and I recommended repeat exam in 10 years.
[2018-04-03 12:01] VITALS: BP 117/79; PULSE 71
== END 2018-04-03 12:03 | disposition home or self-care (01) ==
LOC: ORWHC2ENDO 09:32
DX: Z12.11 Encounter for screening for malignant neoplasm of colon (principal); I10 Essential (primary) hypertension; M79.7 Fibromyalgia; N40.0 Benign prostatic hyperplasia without lower urinary tract symptoms; E07.9 Disorder of thyroid, unspecified; F39 Unspecified mood [affective] disorder; H40.9 Unspecified glaucoma; M10.9 Gout, unspecified; Z79.890 Hormone replacement therapy; Z79.899 Other long term (current) drug therapy; Z88.2 Allergy status to sulfonamides; Z88.8 Allergy status to other drugs, medicaments and biological substances; Z87.891 Personal history of nicotine dependence
CPT/HCPCS: J2704; G0121

== ENCOUNTER → 2018-09-14 | Outpatient (CLI) | payer MEDICARE, BC ==
--- NOTE | 2018-09-14 13:07 | ECHOS ---
STRESS ECHOCARDIOGRAM DATE OF SERVICE: 09/14/2018 INDICATIONS: Chest pain. MEDICATIONS: BASELINE HEART RATE: 73 BASELINE BLOOD PRESSURE: 117/60 MAXIMUM HEART RATE: 126 MAXIMUM BLOOD PRESSURE: 197/92 85% MPHR: 138 100% MPHR: 151 METS: 7.3 MAXIMUM STAGE REACHED: III TOTAL EXERCISE TIME: 7 minutes CLINICAL INFORMATION: Baseline EKG revealed normal sinus rhythm without significant ST-T changes. Patient walked on a standard Alex protocol for 7 minutes and achieved a maximal heart rate of 126 beats per minute which is almost 85% of predicted maximal. He developed some fatigue and shortness of breath, but did not have any angina or arrhythmia. EKG did not reveal any ST-segment changes to indicate ischemia. By EKG criteria, this is a negative stress test, although patient did not quite achieve 85% of predicted maximal. His heart rate was about 83% to 84%. In the recovery period, isolated PACs were noted. This is a negative stress test by EKG criteria. Baseline echo images revealed normal wall motion and wall thickening of all segments. At peak exercise there was good augmentation of left ventricular wall motion and wall thickening of all segments suggesting that there is no evidence of stress-induced ischemia on this study. FINAL IMPRESSION: 1. Fair exercise capacity. At peak exercise, he complained of some dizziness. There is no evidence to suggest ischemia at a heart rate of 84% of predicted maximal. 2. The stress echocardiogram was also normal without evidence of ischemia. MMVICKY / ISMAELN: [id number] /
== END | disposition home or self-care (01) ==
LOC: RADNMMAIN 08:53
PROVIDERS: ATTEND Internal Medicine
DX: R07.9 Chest pain, unspecified (principal)
CPT/HCPCS: 93351

== ENCOUNTER 2019-05-23 19:12 | Emergency (ER) | payer MEDICARE, BC ==
[2019-05-23 20:11] LABS: Basophils % (A) 0 %; Eosinophils # (A) 0.1 k/uL (0-0.7); Eosinophils % (A) 1 %; HCT 39.8 % (39.0-53.0); HGB 13.9 gm/dL (13.0-17.5); Lymphocytes # (A) 0.5 k/uL (1.0-4.8); Lymphocytes % (A) 10 %; MCH 30.2 pg (25.0-35.0); MCHC 34.9 g/dL (31.0-37.0); MCV 86.4 fL (80.0-100.0); Mean Platelet Volume 7.5; Monocytes # (A) 0.1 k/uL (0-1.0); Monocytes % (A) 1 %; Neutrophils # (A) 4.5 k/uL (1.3-7.7); Neutrophils % (A) 88 %; Platelet Count 278 k/uL (150-450); RBC 4.61 m/uL (4.30-5.90); RDW 13.6 % (11.5-15.5); WBC 5.1 k/uL (3.8-10.6)
--- NOTE | 2019-05-23 20:21 | XR ---
EXAMINATION TYPE: XR chest 1V portable DATE OF EXAM: 05/23/2019 HISTORY: Shortness of breath. COMPARISON: 02/05/2012 TECHNIQUE: Single view of the chest is submitted. FINDINGS: Demonstrated are scattered senescent parenchymal change. There is no evidence for focal infiltrate. The heart is stable. Hilar and mediastinal structures are within normal limits. Degenerative changes are seen of the dorsal spine. IMPRESSION: 1. Chronic changes without evidence for acute pulmonary disease.
[2019-05-23 20:27] LABS: Calcium 9.7 mg/dL (8.4-10.2); Magnesium 1.7 mg/dL (1.6-2.3); Potassium 3.9 mmol/L (3.5-5.1); Total Bilirubin 0.9 mg/dL (0.2-1.3); Total Protein 6.9 g/dL (6.3-8.2)
[2019-05-23 20:39] LABS: Partial Thromboplastin Time 24.1 sec (22.0-30.0); Prothrombin Time 10.1 sec (9.0-12.0)
[2019-05-23 20:40] LABS: C Reactive Protein 132.3 mg/L (<10.0)
[2019-05-23] MEDS ORDERED: VANCOMYCIN IV PER PHARMACY 1 EACH MISC MISCELLANE PRN (20:47)
[2019-05-23] MEDS ORDERED: CEFEPIME 2 GM in SODIUM CHLORIDE 0.9% 100 ML IVPB STA (20:47)
[2019-05-23] MEDS ORDERED: VANCOMYCIN 1,750 MG in SODIUM CHLORIDE 0.9% 500 ML 500 ML IVPB STA (20:58)
[2019-05-23 21:00] VITALS: BP 102/70; PULSE 104; RESP 20; TEMP 101.5
--- NOTE | 2019-05-23 21:06 | ED ---
General Adult HPI - General Chief complaint: Fever Stated complaint: Fever Time Seen by Provider: 05/23/19 19:24 Source: patient Mode of arrival: wheelchair Limitations: no limitations - History of Present Illness Initial comments: Dictation was produced using [employer] dictation software. please excuse any grammatical, word or spelling errors. This patient was cared for during a federal and state declared state of emergency secondary to Covid 19 Chief Complaint: 68-year-old male presents with cough, URI type symptoms. History of Present Illness: Patient is a 68-year-old male who presents with cough and URI type symptoms. Patient states she's been symptomatic for couple weeks. He is completely course of amoxicillin. He was told at an urgent care that he had a respiratory staph infection. He states that his symptoms has not improved. He is been getting fever cough shortness of breath and chest cramping for the last 48 hours. Patient was in [place] approximately 10 days ago where he was seen at the urgent care among several other individuals. At that time this test for flu and coronavirus and was negative. He's been taking antipyretics for his symptoms today. The ROS documented in this emergency department record has been reviewed and confirmed by me. Those systems with pertinent positive or negative responses have been documented in the HPI. All other systems are other negative and/or noncontributory. PHYSICAL EXAM: General Impression: Alert and oriented x3, not in acute distress HEENT: Normocephalic atraumatic, extra-ocular movements intact, pupils equal and reactive to light bilaterally, mucous membranes moist. Cardiovascular: Heart regular rate and rhythm, S1&S2 audible, no murmurs, rubs or gallops Chest: Able to complete full sentences, no retractions, no tachypnea Abdomen: Bowel sounds present, abdomen soft, non-tender, non-distended, no organomegaly Musculoskeletal: Pulses present and equal in all extremities, no peripheral edema Motor: no focal deficits noted Neurological: CN II-XII grossly intact, no focal motor or sensory deficits noted Skin: Intact with no visualized rashes Psych: Normal affect and mood ED course:68-year-old male presents with URI-type symptoms. As upon arrival shows tachycardia 11.5, heart rate of 104, rest of vital signs within acceptable limits. Laboratory evaluation obtained. CBC, coag panel, metabolic panel is unremarkable. Urinalysis shows 9 white blood cells. Patient denies any urinary symptoms. Still to follow-up with his urine cultures. Influenza test negative. Chest x-ray is unremarkable. Rotavirus result is positive. Patient reeval uated bedside. Still has a fever however he is not hypoxic and is not showing any signs of respiratory distress. Patient deemed stable for discharge with strict return precautions. Patient told to quarantine for 14 days. Patient given outpatient resources for Covid 19 - Related Data Home Medications Medication Instructions Recorded Confirmed Latanoprost [Xalatan 0.005%] 1 drop BOTH EYES HS 10/08/16 05/23/19 Losartan [Cozaar] 50 mg PO QAM 10/08/16 05/23/19 Vitamin B Complex 1 cap PO QAM 10/08/16 05/23/19 LORazepam [Ativan] 1 mg PO BID PRN 03/06/17 05/23/19 Tamsulosin HCl [Flomax] 0.4 mg PO HS 03/06/17 05/23/19 Ascorbic Acid [Vitamin C] 1,000 mg PO DAILY 03/30/18 05/23/19 Levothyroxine Sodium [Synthroid] 175 mcg PO DAILY 03/30/18 05/23/19 Sertraline HCl [Zoloft] 200 mg PO HS 03/30/18 05/23/19 Albuterol Inhaler [Ventolin Hfa 2 puff PO RT-Q4H PRN 05/23/19 05/23/19 Inhaler] Atorvastatin [Lipitor] 20 mg PO DAILY 05/23/19 05/23/19 Azithromycin [Zithromax Z-pack] See Taper PO DIRECTED 05/23/19 05/23/19 Codeine Phosphate/Guaifenesin 5 ml PO Q4H PRN 05/23/19 05/23/19 [Virtussin AC 10-100 mg/5 ml Lq] Dextroamphetamine/Amphetamine 10 mg PO TID 05/23/19 05/23/19 [Adderall] Fluticasone Nasal [place] [Flonase 2 spr EA NOSTRIL DAILY PRN 05/23/19 05/23/19 Nasal [place]] Sildenafil [Revatio] 20 mg PO BID PRN 05/23/19 05/23/19 Allergies Allergy/AdvReac Type Severity Reaction Status Date / Time Sulfa (Sulfonamide Allergy Rash/Hives Verified 05/23/19 21:16 Antibiotics) olanzapine [From Zyprexa] AdvReac Rapid Verified 05/23/19 21:16 Heart Rate Review of Systems ROS Statement: Those systems with pertinent positive or pertinent negative responses have been documented in the HPI. ROS Other: All systems not noted in ROS Statement are negative. Past Medical History Past Medical History: Cancer, Eye Disorder, Fibromyalgia, Hypertension, Thyroid Disorder Additional Past Medical History / Comment(s): GLAUCOMA, HEPATITIS C WITH [place] FEB 2018., ENVIRONMENTAL ALLERGIES., HX OF BLADDER CANCER., ENLARGED PROSTATE. History of Any Multi-Drug Resistant Organisms: None Reported Past Surgical History: Bladder Surgery, Tonsillectomy Additional Past Surgical History / Comment(s): Bladder surgery: 2003-Tumors removed. Past Anesthesia/Blood Transfusion Reactions: No Reported Reaction Past Psychological History: Anxiety, Depression Smoking Status: Former smoker Past Alcohol Use History: None Reported Past Drug Use History: Marijuana - Past Family History Father Family Medical History: No Reported History Additional Family Medical History / Comment(s): Father from heart failure. Mother Family Medical History: Cancer Additional Family Medical History / Comment(s): lung cancer Sister(s) Family Medical History: Cancer Additional Family Medical History / Comment(s): breast cancer General Exam Limitations: no limitations Course Vital Signs 05/23/19 05/23/19 19:18 20:58 Temperature 102.0 F H 101.5 F H Pulse Rate 123 H 104 H Respiratory 18 20 Rate Blood Pressure 145/67 102/70 O2 Sat by Pulse 98 Oximetry Medical Decision Making - Lab Data Result diagrams: 05/23/19 20:00 05/23/19 20:00 Lab Results 05/23/19 05/23/19 05/23/19 Range/Units 20:00 20:00 20:00 WBC 5.1 (3.8-10.6) k/uL RBC 4.61 (4.30-5.90) m/uL Hgb 13.9 (13.0-17.5) gm/dL Hct 39.8 (39.0-53.0) % MCV 86.4 (80.0-100.0) fL MCH 30.2 (25.0-35.0) pg MCHC 34.9 (31.0-37.0) g/dL RDW 13.6 (11.5-15.5) % Plt Count 278 (150-450) k/uL Neutrophils % 88 % Lymphocytes % 10 % Monocytes % 1 % Eosinophils % 1 % Basophils % 0 % Neutrophils # 4.5 (1.3-7.7) k/uL Lymphocytes # 0.5 L (1.0-4.8) k/uL Monocytes # 0.1 (0-1.0) k/uL Eosinophils # 0.1 (0-0.7) k/uL Basophils # 0.0 (0-0.2) k/uL PT 10.1 (9.0-12.0) sec INR 1.0 (<1.2) APTT 24.1 (22.0-30.0) sec Sodium 137 (137-145) mmol/L Potassium 3.9 (3.5-5.1) mmol/L Chloride 102 (98-107) mmol/L Carbon Dioxide 24 (22-30) mmol/L Anion Gap 11 mmol/L BUN 24 H (9-20) mg/dL Creatinine 1.35 H (0.66-1.25) mg/dL Est GFR (CKD-EPI)AfAm 61 (>60 ml/min/1.73 sqM) Est GFR (CKD-EPI)NonAf 53 (>60 ml/min/1.73 sqM) Glucose 96 (74-99) mg/dL Calcium 9.7 (8.4-10.2) mg/dL Magnesium 1.7 (1.6-2.3) mg/dL Total Bilirubin 0.9 (0.2-1.3) mg/dL AST 36 (17-59) U/L ALT 18 (4-49) U/L Alkaline Phosphatase 105 (38-126) U/L C-Reactive Protein 132.3 H (<10.0) mg/L Total Protein 6.9 (6.3-8.2) g/dL Albumin 4.0 (3.5-5.0) g/dL Urine Color Urine Appearance (Clear) Urine pH (5.0-8.0) Ur Specific [place] (1.001-1.035) Urine Protein (Negative) Urine Glucose (UA) (Negative) Urine Ketones (Negative) Urine Blood (Negative) Urine Nitrite (Negative) Urine Bilirubin (Negative) Urine Urobilinogen (<2.0) mg/dL Ur Leukocyte Esterase (Negative) Urine RBC (0-5) /hpf Urine WBC (0-5) /hpf Ur Squamous Epith Cells (0-4) /hpf Hyaline Casts (0-2) /lpf Urine Mucus (None) /hpf Influenza Type A RNA (Not Detectd) Influenza Type B (PCR) (Not Detectd) 05/23/19 05/23/19 Range/Units 20:00 20:53 WBC (3.8-10.6) k/uL RBC (4.30-5.90) m/uL Hgb (13.0-17.5) gm/dL Hct (39.0-53.0) % MCV (80.0-100.0) fL MCH (25.0-35.0) pg MCHC (31.0-37.0) g/dL RDW (11.5-15.5) % Plt Count (150-450) k/uL Neutrophils % % Lymphocytes % % Monocytes % % Eosinophils % % Basophils % % Neutrophils # (1.3-7.7) k/uL Lymphocytes # (1.0-4.8) k/uL Monocytes # (0-1.0) k/uL Eosinophils # (0-0.7) k/uL Basophils # (0-0.2) k/uL PT (9.0-12.0) sec INR (<1.2) APTT (22.0-30.0) sec Sodium (137-145) mmol/L Potassium (3.5-5.1) mmol/L Chloride (98-107) mmol/L Carbon Dioxide (22-30) mmol/L Anion Gap mmol/L BUN (9-20) mg/dL Creatinine (0.66-1.25) mg/dL Est GFR (CKD-EPI)AfAm (>60 ml/min/1.73 sqM) Est GFR (CKD-EPI)NonAf (>60 ml/min/1.73 sqM) Glucose (74-99) mg/dL Calcium (8.4-10.2) mg/dL Magnesium (1.6-2.3) mg/dL Total Bilirubin (0.2-1.3) mg/dL AST (17-59) U/L ALT (4-49) U/L Alkaline Phosphatase (38-126) U/L C-Reactive Protein (<10.0) mg/L Total Protein (6.3-8.2) g/dL Albumin (3.5-5.0) g/dL Urine Color Dark Yellow Urine Appearance Cloudy (Clear) Urine pH 5.5 (5.0-8.0) Ur Specific [place] 1.029 (1.001-1.035) Urine Protein 1+ H (Negative) Urine Glucose (UA) Negative (Negative) Urine Ketones Negative (Negative) Urine Blood Negative (Negative) Urine Nitrite Negative (Negative) Urine Bilirubin Negative (Negative) Urine Urobilinogen <2.0 (<2.0) mg/dL Ur Leukocyte Esterase Moderate H (Negative) Urine RBC 1 (0-5) /hpf Urine WBC 9 H (0-5) /hpf Ur Squamous [place]ith Cells <1 (0-4) /hpf Hyaline Casts 10 H (0-2) /lpf Urine Mucus Many H (None) /hpf Influenza Type A RNA Not Detected (Not Detectd) Influenza Type B (PCR) Not Detected (Not Detectd) Disposition Clinical Impression: COVID-19 virus detected Disposition: HOME SELF-CARE Condition: Good Instructions (If sedation given, give patient instructions): Fever in Adults (ED) Additional Instructions: Today you were evaluated for symptoms consistent with upper respiratory infection. There is concern that perhaps your symptomatology may represent Covid 19. Your are stable for discharge, however it is instructed to to seek immediate medical attention especially if you develop worsening symptoms especially respiratory distress. In the meantime please remain in quarantine for 14 days. For any other questions please contact Ailyn for here in emergency department or [facility] at [phone] Is patient prescribed a controlled substance at d/c from ED?: No Referrals: Dc Arreola MD [Primary Care Provider] - 1-2 days Time of Disposition: 21:36
[2019-05-23 21:18] LABS: Appearance,Urine Cloudy (Clear); Bilirubin,Urine Negative (Negative); Blood,Urine Negative (Negative); Color,Urine Dark Yellow; Glucose,Urine (UA) Negative (Negative); Hyaline Casts,Urine 10 /lpf (0-2); Ketones,Urine Negative (Negative); Leukocyte Esterase,Urine Moderate (Negative); Mucus,Urine Many /hpf; Nitrite,Urine Negative (Negative); PH, Urine 5.5 (5.0-8.0); Protein,Urine 1+ (Negative); RBC,Urine 1 /hpf (0-5); Specific Gravity,Urine 1.029 (1.001-1.035); Squamous Epithelial Cell,Urine <1 /hpf (0-4); Urobilinogen,Urine <2.0 mg/dL (<2.0); WBC,Urine 9 /hpf (0-5)
[2019-05-24] MEDS ORDERED: VANCOMYCIN 1,750 MG in SODIUM CHLORIDE 0.9% 500 ML 500 ML IVPB SCH (13:00)
== END 2019-05-23 21:52 | disposition home or self-care (01) ==
LOC: EC 19:12
DX: U07.1 COVID-19 (principal); I10 Essential (primary) hypertension; E07.9 Disorder of thyroid, unspecified; F41.9 Anxiety disorder, unspecified; F32.9 Major depressive disorder, single episode, unspecified; N40.0 Benign prostatic hyperplasia without lower urinary tract symptoms; Z79.890 Hormone replacement therapy; Z79.899 Other long term (current) drug therapy; Z88.2 Allergy status to sulfonamides; Z88.8 Allergy status to other drugs, medicaments and biological substances; Z87.891 Personal history of nicotine dependence; Z85.51 Personal history of malignant neoplasm of bladder
CPT/HCPCS: 36415; 71045; 80053; 81001; 83735; 85025; 85610; 85730; 86140; 87040; 87502; 87635; 93005; 99284

== ENCOUNTER → 2019-08-15 | Outpatient (CLI) | payer MEDICARE, BC ==
--- NOTE | 2019-08-15 10:02 | FL ---
EXAMINATION: Cervical and Thoracic Esophagram DATE OF EXAM: 08/15/2019 CLINICAL INDICATION: 68-year-old male R13.10, unspecified dysphagia. Reports intermittent sore throat and new heartburn. COMPARISON: None Total Fluoroscopy Time: 2 minutes 23 seconds Total images: 42 FINDINGS: The swallowing mechanism is normal and hypopharyngeal anatomy is preserved. There is moderate hypert rophy of the cricopharyngeus muscle. The cervical and thoracic portions have a normal course and caliber. Moderate tertiary peristaltic co ntractions are demonstrated with blunted secondary stripping waves. When the patient is supine, there is incomplete clearance of contrast from esophagus. The mucosa is normal and no persistent filling defect is encountered. There is a small sliding hiatal hernia and moderate to severe gastroesophageal reflux with combinatio n Valsalva and rightward turning maneuvers. IMPRESSION: 1. Small sliding hiatal hernia with moderate to severe gastroesophageal reflux. CP muscle hypertrophy is also seen which can serve as a protective mechanism. 2. Moderate dysmotility suggests presbyesophagus.
== END | disposition home or self-care (01) ==
LOC: RADUSWWP 08:50
PROVIDERS: ATTEND Internal Medicine
DX: R13.10 Dysphagia, unspecified (principal); K21.9 Gastro-esophageal reflux disease without esophagitis; K44.9 Diaphragmatic hernia without obstruction or gangrene
CPT/HCPCS: 74220

== ENCOUNTER → 2020-02-05 | Outpatient (CLI) | payer MEDICARE, BC ==
--- NOTE | 2020-02-05 15:27 | EEG ---
ELECTROENCEPHALOGRAM REPORT DATE OF SERVICE: 02/05/2020. CLINICAL HISTORY: This is a 69-year-old gentleman who had a COVID-19 positive since April of 2019, and since then the patient has had been having confusion. The video EEG was obtained to evaluate for seizures and epileptiform activity. RELEVANT MEDICATION: Unknown. EEG TYPE: A routine 21-channel EEG IS performed with video using the 10/20 electrode placement system. DESCRIPTION: Wakefulness and drowsiness are obtained. During wakefulness, there is a posterior- dominant rhythm of low voltage, reactive, well modulated, of 10-11 hertz activity over bilateral hemispheres. During drowsiness, there is slowing and attenuation of the background activity. There is no physiological stage II sleep. INTERICTAL AND ICTAL: None. ACTIVATION PROCEDURE: Photic stimulation did not evoke a posterior driving response. Hyperventilation is not performed. CLINICAL INTERPRETATION: This is a normal routine EEG. There are no focal slowing, epileptiform discharges or seizure during the study. Clinical correlation is recommended. MMVICKY / IJN: [id number] / MTDGómez
== END | disposition home or self-care (01) ==
LOC: NEUROMAIN 10:12
PROVIDERS: ATTEND Internal Medicine
DX: G93.49 Other encephalopathy (principal)
CPT/HCPCS: 95816

== ENCOUNTER → 2021-03-06 | Outpatient (CLI) | payer MEDICARE, BC ==
--- NOTE | 2021-03-07 14:49 | MR ---
EXAMINATION TYPE: MR angio head/neck wo con DATE OF EXAM: 03/06/2021 COMPARISON: None HISTORY: Vascular Headache TECHNIQUE: Time of flight images focusing on the [place] and neck were performed without con trast.. 2-D and 3-D postprocessing imaging is performed on an alternate workstation. FINDINGS: [place] shows patent anterior and posterior circulation. There is no evident disse ction, embolism, stenosis, or aneurysm. Common carotid arteries, internal and external carotid arteries are patent, there is no evident steno sis of the proximal internal carotid arteries by NASCET criteria. There is artifact present on the so urce images. Right vertebral artery is dominant. Left vertebral artery shows poor signal on the [place] M RA at the level of the foramen magnum and is not well seen within the neck. IMPRESSION: Poor signal involving the left vertebral artery, consider carotid Doppler or contrast-enh anced CTA or MRA for additional evaluation.
== END | disposition home or self-care (01) ==
LOC: RADMRIMAIN 08:48
PROVIDERS: ATTEND Internal Medicine
DX: G44.1 Vascular headache, not elsewhere classified (principal)
CPT/HCPCS: 70544; 70547

== ENCOUNTER 2021-03-31 19:00 | Emergency (ER) | payer MEDICARE, BC ==
[2021-03-31 19:05] VITALS: PULSE 84; RESP 20; TEMP 97.7
--- NOTE | 2021-03-31 20:59 | XR ---
EXAMINATION TYPE: XR knee complete LT DATE OF EXAM: 03/31/2021 COMPARISON: 12/05/2012 HISTORY: Knee pain TECHNIQUE: 3 views FINDINGS: There is no evidence of fracture nor dislocation. Joint spaces are normal. There is some sp urring on the superior patella. IMPRESSION: Negative left knee exam. No fracture. No change.
--- NOTE | 2021-03-31 21:02 | CT ---
EXAMINATION TYPE: CT brain andres [place] con DATE OF EXAM: 03/31/2021 COMPARISON: None HISTORY: fall head injury CT DLP: 1265.2 mGycm Automated exposure control for dose reduction was used. Ventricles have normal size. There is no mass effect or midline shift. There is no sign of intracrani al hemorrhage. There is some cerebral atrophy appropriate for age. Calvarium is intact. There is norm al aeration of the mastoid sinuses. The cervical vertebra have normal alignment. There is no compression fracture. Facet joints are intac t. There is multilevel cervical hypertrophic facet arthropathy. There is disc space narrowing and spu r formation at C5-6 and C6-7. IMPRESSION: Mild atrophy. No acute intracranial abnormality. Mild to moderate spondylotic changes in the cervical spine. No fracture.
--- NOTE | 2021-03-31 21:10 | CT ---
EXAMINATION TYPE: CT facial bones wo con DATE OF EXAM: 03/31/2021 COMPARISON: None HISTORY: Fall, head injury CT DLP: 1265.2 mGycm Automated exposure control for dose reduction was used. Images obtained from the bottom of the mandible to the top of the frontal sinuses without contrast. The mandibular ring appears intact. Temporomandibular joints appear normal. The zygomatic arches are normal. Maxilla is intact. There is normal aeration of the paranasal sinuses. Nasal bone appears inta ct. There is no evidence of orbital blowout fracture. Orbital margins are intact. There is no retro-o rbital mass. There are spondylotic changes in the cervical spine. The parotid and submandibular salivary glands appear intact. IMPRESSION: Negative CT scan of the facial bones. No fracture seen.
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
== END 2021-03-31 21:25 | disposition home or self-care (01) ==
LOC: EC 19:00
DX: S06.0X9A Concussion with loss of consciousness of unspecified duration, initial encounter (principal); E07.9 Disorder of thyroid, unspecified; I10 Essential (primary) hypertension; Z79.890 Hormone replacement therapy; Z88.8 Allergy status to other drugs, medicaments and biological substances; Z88.2 Allergy status to sulfonamides; W01.0XXA Fall on same level from slipping, tripping and stumbling without subsequent striking against object, initial encounter
CPT/HCPCS: 70450; 70486; 72125

== ENCOUNTER → 2021-04-21 | Outpatient (CLI) | payer MEDICARE, BC ==
[2021-04-21 23:51] LABS: Basophils # (A) 0.03 X 10*3/uL (0.00-0.10); Basophils % (A) 0.5 %; Eosinophils # (A) 0.17 X 10*3/uL (0.04-0.35); Eosinophils % (A) 2.8 %; HCT 39.7 % (39.6-50.0); HGB 13.1 g/dL (13.0-17.0); Immature Grans, Automated 0.3 %; Lymphocytes # (A) 2.06 X 10*3/uL (0.90-5.00); Lymphocytes % (A) 34.4 %; MCH 30.4 pg (27.0-32.0); MCV 92.1 fL (80.0-97.0); Monocytes # (A) 0.43 X 10*3/uL (0.20-1.00); Monocytes % (A) 7.2 %; NRBC Per 100 WBC 0 /100 WBCS (0.0-0.0); Neutrophils # (A) 3.27 X 10*3/uL (1.80-7.70); Neutrophils % (A) 54.8 %; Platelet Count 215 X 10*3/uL (140-440); RBC 4.31 X 10*6/uL (4.40-5.60); RDW 13.2 % (11.5-14.5); WBC 5.98 X 10*3/uL (4.50-10.00)
[2021-04-22 00:23] LABS: Erythrocyte Sedimentation Rate 1 mm/Hr (0-20)
[2021-04-22 03:20] LABS: C Reactive Protein <0.30 mg/dL (0.00-0.80)
[2021-04-22 03:50] LABS: Folate, Serum >20.00 ng/mL (4.40-31.00)
[2021-04-22 04:34] LABS: HIV 2 AB Non-Reactive (Non-Reactive); HIV AB P24 Non-Reactive (Non-Reactive); HIV P24 AG Non-Reactive (Non-Reactive)
[2021-04-22 15:13] LABS: Lyme IgG/IgM 2.25 Index
== END | disposition home or self-care (01) ==
LOC: LABWHC1 14:36
PROVIDERS: ATTEND Internal Medicine
DX: R41.3 Other amnesia (principal)
CPT/HCPCS: 36415; 82607; 82746; 84425; 84443; 85025; 85652; 86140; 86618; 86780; 87390

== ENCOUNTER 2021-06-15 15:56 | Emergency (ER) | payer MEDICARE, BC ==
[2021-06-15] MEDS ORDERED: DIPH,PERTUS(ACELL)TETVAC-LF 0.5 ML VIAL IM ONE (17:06)
[2021-06-15] MEDS ORDERED: GELATIN SPONGE,ABSORB (LARGE) 1 EACH SPONGE TOPICAL STA (17:06)
[2021-06-15] MEDS ORDERED: LIDOCAINE 1% INJ 10MG/ML (5 ML VIAL-PF) SQ ONE (17:06)
[2021-06-15] MEDS ORDERED: CEPHALEXIN 500 MG CAP PO STA (17:58)
--- NOTE | 2021-06-15 18:20 | XR ---
EXAMINATION TYPE: XR finger RT DATE OF EXAM: 06/15/2021 5:31 PM INDICATION: Patient age:Male; 70 years old; Reason for study: 4th digit laceration; PHH. COMPARISON: None TECHNIQUE: 3 views of the fourth digit were obtained. FINDINGS: Soft tissue laceration without evidence acute osseous pathology. There is chronic appearing calcific density along the ulnar aspect of the fourth digit middle phalanx head likely from remote i njury. Normal alignment of the visualized joints. No acute osseous pathology is identified. IMPRESSION: Fourth digit laceration without evidence for radiopaque foreign body or acute fracture.
[2021-06-15] MEDS ORDERED: BACITRACIN OINT 1 EACH PACKET TOPICAL ONE (18:22)
--- NOTE | 2021-06-15 18:22 | XR ---
EXAMINATION TYPE: XR hand complete LT DATE OF EXAM: 06/15/2021 5:31 PM INDICATION: Patient age:Male; 70 years old; Reason for study: laceration. COMPARISON: None TECHNIQUE: 3 views of the left hand were obtained. FINDINGS: Soft tissue defects involving the first second third digit distally. No evidence radiopaque foreign body or acute fracture. Normal alignment of the visualized joints. No acute osseous patholo gy is identified. No evidence of soft tissue swelling. IMPRESSION: 1. No evidence of acute fracture or radiopaque foreign body. 2. Laceration of the first second and third digits.
--- NOTE | 2021-06-15 18:52 | ED ---
General Adult HPI - General Chief complaint: Wound/Laceration Stated complaint: Lacerations on 4 fingers, 3 on left 1 on right Time Seen by Provider: 06/15/21 16:46 Source: patient Mode of arrival: ambulatory Limitations: no limitations - History of Present Illness Initial comments: This 70-year-old male presents emergency department with lacerations to 4 digits that happened at 10:30 AM. Patient states she is on his workshop with a handsaw when the wood kicked back and sliced his fingers. Patient states he did rinse his fingers and peroxide and placed bandages on top, however he states they have not stopped bleeding. Patient denies having updated tetanus shot and is agreeable to get 1 today. Patient denies being on any blood thinners. Patient denies any loss of sensation or range of motion in any of his hands or digits. Patient denies any chest pain, shortness of breath, abdominal pain, nausea, vomiting, change in bowel or bladder, change in vision, lightheadedness, dizziness, fever, rash. - Related Data Home Medications Medication Instructions Recorded Confirmed Latanoprost [Xalatan 0.005%] 1 drop BOTH EYES HS 10/08/16 05/23/19 Losartan [Cozaar] 50 mg PO QAM 10/08/16 05/23/19 Vitamin B Complex 1 cap PO QAM 10/08/16 05/23/19 LORazepam [Ativan] 1 mg PO BID PRN 03/06/17 05/23/19 Tamsulosin HCl [Flomax] 0.4 mg PO HS 03/06/17 05/23/19 Ascorbic Acid [Vitamin C] 1,000 mg PO DAILY 03/30/18 05/23/19 Levothyroxine Sodium [Synthroid] 175 mcg PO DAILY 03/30/18 05/23/19 Sertraline HCl [Zoloft] 200 mg PO HS 03/30/18 05/23/19 Albuterol Inhaler [Ventolin Hfa 2 puff PO RT-Q4H PRN 05/23/19 05/23/19 Inhaler] Atorvastatin [Lipitor] 20 mg PO DAILY 05/23/19 05/23/19 Azithromycin [Zithromax Z-pack] See Taper PO DIRECTED 05/23/19 05/23/19 Codeine Phosphate/Guaifenesin 5 ml PO Q4H PRN 05/23/19 05/23/19 [Virtussin AC 10-100 mg/5 ml Lq] Dextroamphetamine/Amphetamine 10 mg PO TID 05/23/19 05/23/19 [Adderall] Fluticasone Nasal [place] [Flonase 2 spr EA NOSTRIL DAILY PRN 05/23/19 05/23/19 Nasal [place]] Sildenafil [Revatio] 20 mg PO BID PRN 05/23/19 05/23/19 Previous Rx's Medication Instructions Recorded Cephalexin [Keflex] 500 mg PO Q6HR #28 cap 06/15/21 Allergies Allergy/AdvReac Type Severity Reaction Status Date / Time Sulfa (Sulfonamide Allergy Rash/Hives Verified 06/15/21 16:02 Antibiotics) olanzapine [From Zyprexa] AdvReac Rapid Verified 06/15/21 16:02 Heart Rate Review of Systems ROS Statement: Those systems with pertinent positive or pertinent negative responses have been documented in the HPI. ROS Other: All systems not noted in ROS Statement are negative. Past Medical History Past Medical History: Cancer, Eye Disorder, Fibromyalgia, Hypertension, Thyroid Disorder Additional Past Medical History / Comment(s): GLAUCOMA, HEPATITIS C WITH TX FEB 2018., ENVIRONMENTAL ALLERGIES., HX OF BLADDER CANCER., ENLARGED PROSTATE. History of Any Multi-Drug Resistant Organisms: None Reported Past Surgical History: Bladder Surgery, Tonsillectomy Additional Past Surgical History / Comment(s): Bladder surgery: 2003-Tumors removed. Past Anesthesia/Blood Transfusion Reactions: No Reported Reaction Past Psychological History: Anxiety, Depression Smoking Status: Never smoker Past Alcohol Use History: None Reported Past Drug Use History: None Reported, Marijuana - Past Family History Father Family Medical History: No Reported History Additional Family Medical History / Comment(s): Father from heart failure. Mother Family Medical History: Cancer Additional Family Medical History / Comment(s): lung cancer Sister(s) Family Medical History: Cancer Additional Family Medical History / Comment(s): breast cancer General Exam Limitations: no limitations General appearance: alert, in no apparent distress Head exam: Present: atraumatic, normocephalic, normal inspection Eye exam: Present: normal appearance, PERRL, EOMI. Absent: scleral icterus, conjunctival injection, periorbital swelling Pupils: Present: normal accommodation ENT exam: Present: normal exam, mucous membranes moist Neck exam: Present: normal inspection, full ROM. Absent: tenderness, meningismus, lymphadenopathy Respiratory exam: Present: normal lung sounds bilaterally. Absent: respiratory distress, wheezes, rales, rhonchi, stridor Cardiovascular Exam: Present: regular rate, normal rhythm, normal heart sounds. Absent: systolic murmur, diastolic murmur, rubs, gallop, clicks GI/Abdominal exam: Present: soft, normal bowel sounds. Absent: distended, tenderness, guarding, rebound, rigid Extremities exam: Present: full ROM, normal capillary refill, other (Bilateral radial and ulnar pulses palpable. Full sensation of all digits. Minimal bleeding present). Absent: normal inspection (Left fourth finger with partial nail removed with <0.5cm laceration to distal tip of finger. Left index and middle finger with portion of nail bed removed. Left thumb with 3 cm laceration to the ventral portion of his thumb. Full sensation and range of motion in all hands and digits ) Back exam: Present: normal inspection, full ROM. Absent: CVA tenderness (R), CVA tenderness (L), paraspinal tenderness, vertebral tenderness Neurological exam: Present: alert, oriented X3, CN II-XII intact, normal gait Psychiatric exam: Present: normal affect, normal mood Skin exam: Present: warm, dry, intact, normal color. Absent: rash Course Vital Signs 06/15/21 15:58 Temperature 97.8 F Pulse Rate 70 Respiratory 16 Rate Blood Pressure 182/88 O2 Sat by Pulse 100 Oximetry Procedures - Laceration Laceration #3 Consent Obtained: verbal consent Site: other (Left middle finger) Description: avulsion (Partial nail avulsion-Gelfoam applied, hemostasis obtained), clean Pre-repair: irrigated extensively Patient Tolerated Procedure: well Laceration #2 Consent Obtained: verbal consent Indication: laceration Site: other (Fourth digit right hand) Size (cm): 1 Description: linear, avulsion (Partial nailbed avulsion-Gelfoam applied, hemostasis obtained), clean Depth: simple, single layer Anesthetic Used: lidocaine 1% Anesthesia Technique: local infiltration Pre-repair: irrigated extensively, deep structures intact Size of Sutures: 5-0 Number of Sutures: 1 Technique: simple, interrupted Patient Tolerated Procedure: well, no complications Laceration #4 Consent Obtained: verbal consent Indication: laceration Site: other (Left index finger) Description: avulsion (Partial nailbed avulsion- Gelfoam applied) Pre-repair: wound explored, irrigated extensively Patient Tolerated Procedure: well, no complications Laceration #1 Consent Obtained: verbal consent Site: other (Left thumb) Size (cm): 3 Description: linear, irregular, clean Depth: simple, single layer Anesthetic Used: lidocaine 1% Pre-repair: wound explored, irrigated extensively, deep structures intact Type of Sutures: nylon Size of Sutures: 5-0 Number of Sutures: 8 Technique: simple, interrupted Patient Tolerated Procedure: well, no complications Medical Decision Making - Medical Decision Making This 70-year-old male presents emergency Department with 3 nailbed avulsions on right hand fourth digit, left hand second and third digit- Gelfoam applied and hemostasis was obtained. Patient with <0.5cm laceration to right hand fourth digit on tip of finger where one 5-0 suture was placed, bacitracin applied, hemostasis was obtained. Patient with 3 cm laceration on left hand ventral side of the thumb, eight 5-0 sutures were placed, bacitracin applied and hemostasis obtained without complication. Bandages were covered lightly with bandage. I instructed the patient to remove bandages in 12-24 hours, I instructed him to leave Gelfoam as is until it flakes off on its own. Patient without any loss of sensation or loss of range of motion. Patient was neurovascularly intact. X-ray hand complete left: No evidence of acute fracture or radiopaque foreign body. Laceration of the first and second and third digits. Right hand fourth digit x- ray impression: Fourth digit laceration with evidence for radiopaque foreign body or acute fracture. Instructed patient to return in 7-10 days to have sutures removed. 9 total sutures were placed, one in right hand fourth digit and 8 sutures were placed in left hand thumb. Patient given dose of Keflex here in the emergency department and was placed on Keflex 7 days. I instructed patient to follow-up with orthopedic hand doctor up with referral information was given on discharge paperwork. Instructed patient to follow-up with his primary care provider next 1-2 days. Strict return precautions were discussed. Patient verbally agreed to plan. Patient sent home in stable condition. Case discussed in detail with my attending, who also saw and evaluated patient. Disposition Clinical Impression: Laceration of finger nail bed, Laceration of left thumb Disposition: HOME SELF-CARE Condition: Stable Instructions (If sedation given, give patient instructions): Care For Your Stitches (ED), Finger Laceration (ED), Skin Adhesive Care (ED) Additional Instructions: Please return to the emergency department with any new, worsening, or concerning symptoms. Please return to have sutures removed between 06/22/21 and 06/25/21. Take Keflex as directed. Follow-up with primary care provider next 1-2 days. Follow-up with orthopedics in next 1-2 days. Prescriptions: Cephalexin [Keflex] 500 mg PO Q6HR #28 cap Is patient prescribed a controlled substance at d/c from ED?: No Referrals: Dc Arreola MD [Primary Care Provider] - 1-2 days Tiana Kenny DO [Doctor of Osteopathic Medicine] - 1-2 days Time of Disposition: 18:52
[2021-06-15 19:18] VITALS: BP 154/84; PULSE 72; RESP 18; TEMP 98.7
== END 2021-06-15 19:19 | disposition home or self-care (01) ==
LOC: EC 15:56
DX: S61.219A Laceration without foreign body of unspecified finger without damage to nail, initial encounter (principal); E07.9 Disorder of thyroid, unspecified; I10 Essential (primary) hypertension; Z79.1 Long term (current) use of non-steroidal anti-inflammatories (NSAID); Z88.2 Allergy status to sulfonamides; Z88.8 Allergy status to other drugs, medicaments and biological substances; W31.2XXA Contact with powered woodworking and forming machines, initial encounter; Y92.69 Other specified industrial and construction area as the place of occurrence of the external cause
CPT/HCPCS: 73130; 73140; 90715; 99283; 90471; J2001

== ENCOUNTER → 2021-09-03 | Outpatient (CLI) | payer MEDICARE, BC ==
--- NOTE | 2021-09-04 03:11 | MR ---
EXAMINATION TYPE: MR knee LT wo con DATE OF EXAM: 09/03/2021 COMPARISON: None HISTORY: PAIN IN LEFT KNEE Multiplanar multiecho imaging of the left knee with no contrast. The anterior and posterior cruciate ligaments appear intact. There is knee joint effusion. The medial and lateral menisci do not show evidence of a tear. The joint spaces are fairly normal. There is sub cutaneous edema anterior to the patella. Patella is intact. No fracture line seen. The collateral lig aments appear intact. IMPRESSION: There is anterior subcutaneous edema. There is a small knee joint effusion. No evidence of ligament o r meniscal tear. No evidence of any significant arthritic disease.
== END | disposition home or self-care (01) ==
LOC: RADMRIMAIN 16:32
PROVIDERS: ATTEND Orthopaedic Surgery
DX: M25.462 Effusion, left knee (principal); R60.0 Localized edema; M25.562 Pain in left knee

== ENCOUNTER → 2021-09-21 | Outpatient (CLI) | payer MEDICARE, BC ==
--- NOTE | 2021-09-22 08:04 | XR ---
EXAM TYPE: LUMBAR SPINE X RAY SERIES COMPARISON: 10/04/2016 HISTORY: Pain TECHNIQUE: 4 views are submitted. FINDINGS: Alignment is anatomic. The pedicles are intact. The transverse processes are intact. There is diff use osteopenia with multilevel degenerative disc disease and facet arthropathy. Vascular calcificatio ns noted. Curvature of the spine noted. IMPRESSION: 1. Diffuse osteopenia with multilevel degenerative disc disease
--- NOTE | 2021-09-22 08:10 | XR ---
EXAMINATION TYPE: XR cervical spine w flex/ext DATE OF EXAM: 09/21/2021 COMPARISON: NONE HISTORY: Pain TECHNIQUE: 8 views are submitted including flexion-extension lateral views. FINDINGS: The odontoid is intact. There are no compression deformities. The prevertebral soft tissue structur es are within normal limits. Severe hypertrophic degenerative disc disease C5-6 and C6-C7. Multileve l facet arthropathy. On flexion views are slight anterolisthesis of C4 relative to C5 measuring 2 mm. Calcification soft tissue right neck likely related to atherosclerotic change carotid artery. IMPRESSION: 1. Severe degenerative disc disease with hypertrophic spurring at C5-6 and C6-C7. Suspect foraminal e ncroachment at multiple levels. Recommend MRI. 2. Multilevel facet arthropathy..
== END | disposition home or self-care (01) ==
LOC: RADXRMAIN 15:54
PROVIDERS: ATTEND Internal Medicine
DX: M47.12 Other spondylosis with myelopathy, cervical region (principal); M47.816 Spondylosis without myelopathy or radiculopathy, lumbar region
CPT/HCPCS: 72052; 72100

== ENCOUNTER → 2021-10-14 | Outpatient (CLI) | payer MEDICARE, BC ==
--- NOTE | 2021-10-14 10:47 | MR ---
EXAMINATION TYPE: MR lumbar wo con DATE OF EXAM: 10/14/2021 COMPARISON: NONE HISTORY: Sore neck and low back pain since 2021 TECHNIQUE: T1 and T2 axial and sagittal images of the lumbar spine are submitted. FINDINGS: There is no abnormal signal seen within the visualized spinal cord or paraspinal soft tissu es. Simple appearing cyst within the right lobe of the liver. Bone marrow mildly heterogeneous but li kae in the basis of marrow reconversion or osteopenia. No discrete intraosseous suspicious lesions. At L1-2 there is degenerative disc disease with facet arthropathy but no disc herniation or canal [place] nosis. No foraminal encroachment. At L2-3 there is disc desiccation and hypertrophic changes since the ligamentum flavum. No canal sten osis. Neural foramina are patent bilaterally. At L3-4 there is degenerative disc disease with hypertrophic change of the facets and ligamentum flav um. Mild circumferential disc bulging with mild bilateral foraminal diminutive spinal canal noted. Kee rderline central stenosis. At L4-5 there is degenerative disc disease with broad-based disc protrusion. Advanced facet arthropat hy with ligamentum flavum hypertrophy results in moderate canal stenosis and bilateral foraminal encr oachment. At L5-S1 there is annular tear with broad-based disc protrusion. Hypertrophic changes of facets and l igamentum flavum results in borderline to mild canal stenosis but no bilateral foraminal encroachment . IMPRESSION: 1. Multilevel degenerative disc disease and facet arthropathy with disc bulging at the levels L3-4: B orderline canal stenosis, and L4-5 resulting in moderate canal stenosis and bilateral foraminal encro achment. 2. Annular tear with broad-based disc through L5-S1 results in mild mass effect upon thecal sac and b orderline mild central stenosis. Diminutive spinal canal contributes. EXAMINATION TYPE: MR cspine/lspine wo con DATE OF EXAM: 10/14/2021 COMPARISON: NONE HISTORY: Sore neck and low back pain since 2021 TECHNIQUE: T1 sagittal and coronal, T2 sagittal, and gradient echo axial views of the cervical spine are submitted. FINDINGS: The cranial cervical junction is preserved. There is no abnormal signal seen within the sp inal cord or paraspinal soft tissues. Marrow mildly heterogeneous but likely in the basis of marrow r econversion or osteopenia. No discrete intraosseous suspicious lesions. Large hemangioma T3. At C2-3 there is no disc herniation or canal stenosis. There is facet arthropathy and neural foramina . At C3-4 there is hypertrophic facet arthropathy greater on the right with uncovertebral joint hypertr ophy resulting in mild left and moderate right foraminal encroachment. No disc herniation or canal st enosis. At C4-5 there is degenerative disc disease with more advanced facet arthropathy. Uncovertebral joint hypertrophy contributes to moderate bilateral foraminal encroachment. No disc herniation or canal [place] nosis. At C5-6 there is severe degenerative disc disease with facet arthropathy, uncovertebral joint hernia. Discogenic marrow changes. Central disc bulging. There is moderate central stenosis with mass effect on the spinal cord anteriorly. At C6-7 there is severe degenerative disc disease with broad-based disc protrusion encroaching upon t he anterior margin of the spinal cord. Cannot exclude mild mass effect. Uncovertebral joint hypertrop hy bilaterally with moderate left and mild right foraminal encroachment. There is moderate canal sten osis. At C7-T1 there is degenerative disc disease. Chronic endplate deformity of T1. No canal stenosis or f oraminal approach IMPRESSION: 1. Multilevel degenerative disc disease most marked at C5-6 and C6-C7. Disc bulging or protrusion wi th hypertrophic changes results in canal stenosis and bilateral foraminal encroachment.
== END | disposition home or self-care (01) ==
LOC: RADMRIMAIN 08:34
PROVIDERS: ATTEND Internal Medicine
DX: M47.12 Other spondylosis with myelopathy, cervical region (principal); M47.816 Spondylosis without myelopathy or radiculopathy, lumbar region
CPT/HCPCS: 72141; 72148

== ENCOUNTER → 2022-06-13 | Outpatient (CLI) | payer MEDICARE, BC ==
--- NOTE | 2022-06-13 09:54 | NM ---
Nuclear medicine hepatobiliary scan. HISTORY: Pain. DOSAGE: The patient received 8 0z Ensure plus and 4.7 mCi of Technetium 99m Choletec. FINDINGS: There is normal hepatic extraction. The gallbladder is seen by 20 minutes. There is bilia ry to bowel clearance by 15 minutes. Ejection fraction is 84%. IMPRESSION: 1. Normal hepatobiliary exam. Ejection fraction 84%
== END | disposition home or self-care (01) ==
LOC: RADNMMAIN 07:00
PROVIDERS: ATTEND Internal Medicine
DX: R19.7 Diarrhea, unspecified (principal); R10.9 Unspecified abdominal pain
CPT/HCPCS: 78226; A9537

== ENCOUNTER → 2022-06-16 | Outpatient (CLI) | payer MEDICARE, BC ==
--- NOTE | 2022-06-16 07:58 | US ---
EXAMINATION TYPE: US gallbladder DATE OF EXAM: 06/16/2022 COMPARISON: MT 06/13/22 CLINICAL INDICATION: Male, 71 years old with history of R19.7 DIARRHEA; Diarrhea. TECHNIQUE: Multiple sonographic images of the right upper quadrant are obtained. FINDINGS: EXAM MEASUREMENTS: Liver Length: 16.3 cm Gallbladder Wall: 0.19 cm CBD: 0.59 cm Right Kidney: 9.7 x 5.3 x 4.3 cm CHARGER TESTER NOTES: Slightly limited due to gas. Pancreas: Not well seen. Liver: Appears slightly coarse. Gallbladder: Hyperechoic area seen that appears to be attached to the gallbladder wall: 0.3 x 0.3 x 0.2 cm. Evidence for sonographic Ballesteros's sign: No CBD: Measures within normal limits. Right Kidney: No hydronephrosis or masses seen Visualized pancreas unremarkable. Portions obscured by overlying bowel gas. IVC is seen near the hepa tic dome. Liver shows slightly heterogeneous appearance without suspicious mass. Common bile duct wit hin normal limits for patient's age. No shadowing mobile gallstones. Incidental 2 to 3 mm polyp suspe cted. No right-sided hydronephrosis. IMPRESSION: No acute findings are evident.
== END | disposition home or self-care (01) ==
LOC: RADUSWWP 06:57
PROVIDERS: ATTEND Internal Medicine
DX: R19.7 Diarrhea, unspecified (principal)
CPT/HCPCS: 76705

== ENCOUNTER → 2022-08-02 | Outpatient (CLI) | payer MEDICARE, BC ==
--- NOTE | 2022-08-02 09:01 | MR ---
EXAMINATION TYPE: MR MRCP DATE OF EXAM: 08/02/2022 8:20 AM CLINICAL INDICATION:Male, 71 years old with history of K82.4 COMPARISON: 06/16/2022 ultrasound, nuclear medicine 06/13/2022 TECHNIQUE: Multi planar, T2-weighted imaging with and without fat saturation and chemical shift imag ing was performed of the abdomen. Then, heavily T2 weighted imaging (half-Fourier acquisition single- shot turbo spin-echo) was utilized in order to study the biliary system. Maximum intensity projectio n images were reconstructed from the original data of the biliary tree. 3D images were created on [employer] work station. No Gadolinium given. FINDINGS: MRCP: The intrahepatic ducts have a normal appearance. The common bile duct at the level of the caraballo creatic head measures 4 mm in size. The common hepatic duct measures 6 mm in size. The pancreatic du ct is normal. The gallbladder appears partially distended. No evidence for filling defect to suggest cholelithiasis . Abdomen: Liver: Signal dropout on chemical shift out of phase imaging. Subcentimeter high T2 signal probable c ysts as well as a 12 mm high T2 signal cyst near the contact point with the right kidney. Pancreas: Unremarkable. Spleen: Unremarkable. Adrenal glands: Unremarkable. Kidneys: Unremarkable. Stomach and Bowel: Unremarkable as visualized. The appendix is normal. No evidence for bowel obstruc tion. Peritoneum: No evidence of pneumoperitoneum, free fluid, or adenopathy. Vasculature: Unremarkable. No aortic aneurysm. Abdominal wall: Unremarkable. Musculoskeletal: The osseous structures appear intact. IMPRESSION: 1. No evidence to suggest ductal stricture, choledocholithiasis, or biliary ductal dilatation. 2. No evidence for acute process. 3. Hepatic steatosis. 4. Probable hepatic cysts.
== END | disposition home or self-care (01) ==
LOC: RADMRIMAIN 07:02
PROVIDERS: ATTEND Internal Medicine
DX: K82.4 Cholesterolosis of gallbladder (principal); K76.0 Fatty (change of) liver, not elsewhere classified
CPT/HCPCS: 74181

== ENCOUNTER 2023-06-06 12:58 | Emergency (ER) | payer MEDICARE, BC ==
[2023-06-06 13:30] VITALS: RESP 18
--- NOTE | 2023-06-06 13:58 | ED ---
Wound/Laceration HPI - General Source: patient, RN notes reviewed Mode of arrival: ambulatory <Tamie Munoz - Last Filed: 06/06/23 13:56> - General Source: RN notes reviewed, old records reviewed Mode of arrival: ambulatory Limitations: no limitations - History of Present Illness -: minutes(s) Extremity Location: Left: Hand Place: home Patient Tetanus UTD: Yes Context: accidental, self-inflicted assault Associated Symptoms: none <Troy Hall - Last Filed: 06/14/23 22:22> - General Chief Complaint: Wound/Laceration Stated Complaint: R hand lac Time Seen by Provider: 06/06/23 13:10 - History of Present Illness Initial Comments: Notethis is a 72-year-old male presents emergency department chief complaint of the laceration. Patient states using a table saw this morning when he cut his finger. He states that he had a tetanus vaccine about a year ago. Denies lightheadedness or dizziness. (Tamie Munoz) This is a 72-year-old male presenting today for evaluation of laceration. Laceration just prior to arrival presents for persistent bleeding has complete ability to move all parts of left aspect of the thumb (Troy Hall) - Related Data Home Medications Medication Instructions Recorded Confirmed Latanoprost [Xalatan 0.005%] 1 drop BOTH EYES HS 10/08/16 05/23/19 Losartan [Cozaar] 50 mg PO QAM 10/08/16 05/23/19 Vitamin B Complex 1 cap PO QAM 10/08/16 05/23/19 LORazepam [Ativan] 1 mg PO BID PRN 03/06/17 05/23/19 Tamsulosin HCl [Flomax] 0.4 mg PO HS 03/06/17 05/23/19 Ascorbic Acid [Vitamin C] 1,000 mg PO DAILY 03/30/18 05/23/19 Levothyroxine Sodium [Synthroid] 175 mcg PO DAILY 03/30/18 05/23/19 Sertraline HCl [Zoloft] 200 mg PO HS 03/30/18 05/23/19 Albuterol Inhaler [Ventolin Hfa 2 puff PO RT-Q4H PRN 05/23/19 05/23/19 Inhaler] Atorvastatin [Lipitor] 20 mg PO DAILY 05/23/19 05/23/19 Azithromycin [Zithromax Z-pack] See Taper PO DIRECTED 05/23/19 05/23/19 Codeine Phosphate/Guaifenesin 5 ml PO Q4H PRN 05/23/19 05/23/19 [Virtussin AC 10-100 mg/5 ml Lq] Dextroamphetamine/Amphetamine 10 mg PO TID 05/23/19 05/23/19 [Adderall] Fluticasone Nasal [place] [Flonase 2 spr EA NOSTRIL DAILY PRN 05/23/19 05/23/19 Nasal [place]] Sildenafil [Revatio] 20 mg PO BID PRN 05/23/19 05/23/19 Previous Rx's Medication Instructions Recorded Cephalexin [Keflex] 500 mg PO Q6HR #28 cap 06/15/21 Allergies Allergy/AdvReac Type Severity Reaction Status Date / Time Sulfa (Sulfonamide Allergy Rash/Hives Verified 06/06/23 13:07 Antibiotics) olanzapine [From Zyprexa] AdvReac Rapid Verified 06/06/23 13:07 Heart Rate Review of Systems ROS Other: All systems not noted in ROS Statement are negative. <Tamie Munoz - Last Filed: 06/06/23 13:56> ROS Other: All systems not noted in ROS Statement are negative. <Troy Hall - Last Filed: 06/14/23 22:22> ROS Statement: Those systems with pertinent positive or pertinent negative responses have been documented in the HPI. Past Medical History Past Medical History: Cancer, Eye Disorder, Fibromyalgia, Hypertension, Thyroid Disorder Additional Past Medical History / Comment(s): GLAUCOMA, HEPATITIS C WITH TX FEB 2018., ENVIRONMENTAL ALLERGIES., HX OF BLADDER CANCER., ENLARGED PROSTATE. History of Any Multi-Drug Resistant Organisms: None Reported Past Surgical History: Bladder Surgery, Tonsillectomy Additional Past Surgical History / Comment(s): Bladder surgery: 2003-Tumors removed. Past Anesthesia/Blood Transfusion Reactions: No Reported Reaction Past Psychological History: Anxiety, Depression Smoking Status: Never smoker Past Alcohol Use History: None Reported Past Drug Use History: None Reported, Marijuana - Past Family History Father Family Medical History: No Reported History Additional Family Medical History / Comment(s): Father from heart failure. Mother Family Medical History: Cancer Additional Family Medical History / Comment(s): lung cancer Sister(s) Family Medical History: Cancer Additional Family Medical History / Comment(s): breast cancer <Tamie Munoz - Last Filed: 06/06/23 13:56> General Exam <Tamie Munoz - Last Filed: 06/06/23 13:56> General appearance: alert, in no apparent distress Head exam: Present: atraumatic, normocephalic, normal inspection Eye exam: Present: normal appearance, PERRL, EOMI. Absent: scleral icterus, conjunctival injection, periorbital swelling ENT exam: Present: normal exam, mucous membranes moist Neck exam: Present: normal inspection. Absent: tenderness, meningismus, lymphadenopathy Respiratory exam: Present: normal lung sounds bilaterally. Absent: respiratory distress, wheezes, rales, rhonchi, stridor Cardiovascular Exam: Present: regular rate, normal rhythm, normal heart sounds. Absent: systolic murmur, diastolic murmur, rubs, gallop, clicks GI/Abdominal exam: Present: soft, normal bowel sounds. Absent: distended, tenderness, guarding, rebound, rigid Extremities exam: Present: normal inspection, full ROM, normal capillary refill. Absent: tenderness, pedal edema, joint swelling, calf tenderness Back exam: Present: normal inspection Neurological exam: Present: alert, oriented X3, CN II-XII intact Psychiatric exam: Present: normal affect, normal mood Skin exam: Present: warm, dry, intact, normal color. Absent: rash <Troy Hall - Last Filed: 06/14/23 22:22> - General Exam Comments Initial Comments: Visual Physical Exam Vital signs reviewed General: Well-appearing, nontoxic, no acute distress. Head: Normocephalic, atraumatic Eyes: PERRLA, EOMI ENT: Airway patent Chest: Nonlabored breathing Skin: No visual rash, normal skin tone Neuro: Alert and oriented 3 Musculoskeletal: No gross abnormalities (Tammy,Tamie) Course <Troy Hall - Last Filed: 06/14/23 22:22> Vital Signs 06/06/23 06/06/23 13:04 17:37 Temperature 97.5 F L 97.9 F Pulse Rate 69 67 Respiratory 18 18 Rate Blood Pressure 173/102 159/89 O2 Sat by Pulse 100 100 Oximetry - Reevaluation(s) Reevaluation #1: Records reviewed (Troy Hall) Reevaluation #2: Patient symptoms are improved (Troy Hall) Reevaluation #3: Patient informed of results and questions answered (Troy Hall) Reevaluation #4: Was pt. sent in by a medical professional or institution ([facility], MANAGER RESPIRATORY, urgent care, hospital, or senior living...) When possible be specific @ -no Did you speak to anyone other than the patient for history (EMS, parent, family, police, friend...)? What history was obtained from this source @ -no Did you review nursing and triage notes (agree or disagree)? Why? @ -agree Are old charts reviewed (outside hosp., previous admission, EMS record, old EKG, old radiological studies, urgent care reports/EKG's, senior living records)? Report findings @ -yes Differential Diagnosis (chest pain, altered mental status, abdominal pain women, abdominal pain men, vaginal bleeding, weakness, fever, dyspnea, syncope, headache, dizziness, GI bleed, back pain, seizure, CVA, palpatations, mental health, musculoskeletal)? @ -prior EKG interpreted by me (3pts min.). @ -no X-rays interpreted by me (1pt min.). @ -yes negative for acute disease CT interpreted by me (1pt min.). @ -no U/S interpreted by me (1pt. min.). @ -no What testing was considered but not performed or refused? (CT, X-rays, U/S, labs)? Why? @ -none What meds were considered but not given or refused? Why? @ -none Did you discuss the management of the patient with other professionals (professionals i.e. [facility], MANAGER RESPIRATORY, lab, RT, psych nurse, web content & social media manager, armored car driver, teacher, investment officer, pillowcase cleaner)? Give summary @ -no Was smoking cessation discussed for >3mins.? @ -no Was critical care preformed (if so, how long)? @ -no Were there social determinants of health that impacted care today? How? (Homelessness, low income, unemployed, alcoholism, drug addiction, transportation, low edu. Level, literacy, decrease access to med. care, senior living, rehab)? @ -none Was there de-escalation of care discussed even if they declined (Discuss DNR or withdrawal of care, Hospice)? DNR status @ -no What co-morbidities impacted this encounter? (DM, HTN, Smoking, COPD, CAD, Cancer, CVA, ARF, Chemo, Hep., AIDS, mental health diagnosis, sleep apnea, morbid obesity)? @ -none Was patient admitted / discharged? Hospital course, mention meds given and route, prescriptions, significant lab abnormalities, going to OR and other pertinent info. @ -72 male with left thumb laceration laceration repaired and patient can be discharged home Undiagnosed new problem with uncertain prognosis? @ -no Drug Therapy requiring intensive monitoring for toxicity (Heparin, Nitro, Insulin, Cardizem)? @ -no Were any procedures done? @ -Laceration repair Diagnosis/symptom? @ -Left thumb laceration Acute, or Chronic, or Acute on Chronic? @ -Acute Uncomplicated (without systemic symptoms) or Complicated (systemic symptoms)? @ -Complicated Side effects of treatment? @ -no Exacerbation, Progression, or Severe Exacerbation? @ -exacerbation Poses a threat to life or bodily function? How? (Chest pain, USA, CT, pneumonia, PE, COPD, DKA, ARF, appy, cholecystitis, CVA, Diverticulitis, Homicidal, Suicidal, threat to staff... and all critical care pts) @ -no (Troy Hall) Procedures - Laceration Laceration #1 Consent Obtained: verbal consent Indication: laceration Site: hand Description: linear Depth: simple, single layer Anesthetic Used: lidocaine 1% Pre-repair: wound explored Type of Sutures: nylon Technique: simple, interrupted <Troy Hall - Last Filed: 06/14/23 22:22> Medical Decision Making <Tamie Munoz - Last Filed: 06/06/23 13:56> - Radiology Data Radiology results: report reviewed (X-ray left hand negative for acute disease), image reviewed <Troy Hall - Last Filed: 06/14/23 22:22> - Medical Decision Making I completed the quick note portion of this chart signed Tamie Munoz PA-C (Tamie Munoz) 7 patient does appear to have full range of motion of left thumb currently 3 ma le with thumb laceration repaired here in the ER, patient symptoms are improved feels well and can be discharged home will follow-up with orthopedics if any change in range of motion suspected (Troy Hall) Disposition <Tamie Munoz - Last Filed: 06/06/23 13:56> Is patient prescribed a controlled substance at d/c from ED?: No Time of Disposition: 17:00 <Troy Hall - Last Filed: 06/14/23 22:22> Clinical Impression: Laceration, Laceration of right thumb Disposition: HOME SELF-CARE Condition: Good Instructions (If sedation given, give patient instructions): Laceration (ED), Finger Laceration (ED) Referrals: Dc Arreola MD [Primary Care Provider] - 1-2 days
--- NOTE | 2023-06-06 14:05 | XR ---
EXAMINATION TYPE: XR hand complete RT DATE OF EXAM: 06/06/2023 1:35 PM CLINICAL INDICATION:Male, 72 years old with history of right thumb lac from table saw; [facility] COMPARISON: None TECHNIQUE: XR hand complete RT Frontal, lateral and oblique views were obtained. FINDINGS: Normal alignment of the visualized joints. No acute osseous pathology is identified. No e vidence of soft tissue swelling. IMPRESSION: No acute osseous pathology.
[2023-06-06] MEDS: CEPHALEXIN 500 MG CAP PO STA (17:30)
[2023-06-06 17:48] VITALS: BP 159/89; PULSE 67; TEMP 97.9
== END 2023-06-06 17:38 | disposition home or self-care (01) ==
LOC: EC 12:58
DX: S61.011A Laceration without foreign body of right thumb without damage to nail, initial encounter (principal); Z88.2 Allergy status to sulfonamides; Z88.8 Allergy status to other drugs, medicaments and biological substances; W27.0XXA Contact with workbench tool, initial encounter; Y92.009 Unspecified place in unspecified non-institutional (private) residence as the place of occurrence of the external cause
CPT/HCPCS: 12001; 99283

== ENCOUNTER → 2024-02-26 | Outpatient (CLI) | payer MEDICARE, BC ==
--- NOTE | 2024-02-26 10:49 | US ---
EXAMINATION TYPE: US carotid duplex BILAT DATE OF EXAM: 02/26/2024 COMPARISON: NONE CLINICAL INDICATION: Male, 73 years old with history of I34.0 Nonrheumatic mitral valve; I65.23; Additional History: I66.- Occlusion/stenosis of specified cerebral artery, specified laterality TECHNIQUE: Grayscale, color Doppler and spectral Doppler evaluation of the bilateral carotid systems and vertebral arteries. Indirect Doppler criteria was utilized. FINDINGS: EXAM MEASUREMENTS: RIGHT: Peak Systolic Velocity (PSV) cm/sec ----- Right CCA: 96.8 ----- Right ICA: 102.6 ----- Right ECA: 126 ICA/CCA ratio: 1.1 RIGHT: End Diastole cm/sec ----- Right CCA: 24.1 ----- Right ICA: 21.2 ----- Right ECA: 11.6 LEFT: Peak Systolic Velocity (PSV) cm/sec ----- Left CCA: 95.1 ----- Left ICA: 90.3 ----- Left ECA: 76.2 ICA/CCA ratio: 0.9 LEFT: End Diastole cm/sec ----- Left CCA: 20.8 ----- Left ICA: 32.1 ----- Left ECA: 0 VERTEBRALS (direction of flow): Right Vertebral: Antegrade Left Vertebral: Antegrade Rhythm: Normal CAFETERIA OPERATOR NOTES: No significant stenosis seen Color Doppler imaging shows patency with blood flow throughout the carotid artery. Spectral waveforms are within normal limits. IMPRESSION: Right: No hemodynamically significant stenosis. Left: No hemodynamically significant stenosis. Criteria for Assigning % of Stenosis / Diameter reduction (Estimation based on the indirect measurements of the internal carotid artery velocities (ICA PSV). 1. Normal (no stenosis)=ICA PSV < 125 cm/s: ratio < 2.0: ICA EDV<40 cm/s. 2. Less than 50% stenosis=ICA PSV < 125 cm/s: ratio < 2.0: ICA EDV<40 cm/s. 3. 50 to 69% stenosis=ICA PSV of 125 to 230 cm/s: ration 2.0 ? 4.0: ICA EDV 40-100 cm/s. 4. Greater than 70% stenosis to near occlusion= ICA PSV > 230 cm/s: ratio > 4.0: ICA EDV > 100 cm/s. 5. Near occlusion= ICA PSV velocities may be low or undetectable: variable ratio and ICA EDV. 6. Total occlusion=unable to detect flow. [facility], , 02/26/2024 10:46 AM
== END | disposition home or self-care (01) ==
LOC: RADUSWWP 10:08
PROVIDERS: ATTEND Internal Medicine
DX: I34.0 Nonrheumatic mitral (valve) insufficiency (principal); I65.23 Occlusion and stenosis of bilateral carotid arteries
CPT/HCPCS: 93880

== ENCOUNTER → 2024-08-09 | Outpatient (CLI) | payer MEDICARE, BC ==
--- NOTE | 2024-08-09 14:25 | MR ---
MR pancreas / mrcp wo/w con: 08/09/2024 10:46 AM INDICATION: 73 years old Male. R74.01 elevated liver enzymes'. COMPARISON: Ultrasound liver 07/05/2024, MR MRCP 08/02/2022, gallbladder ultrasound 06/16/2022. TECHNIQUE: Multiplanar multisequence MR imaging of the abdomen was performed both before and after th e intravenous administration of 9 mL Gadobutrol. MRCP protocol was utilized. Maximum intensity projec tion and 3-D images were reconstructed of the biliary tree at a separate independent workstation. FINDINGS: LUNG BASES: Unremarkable. ABDOMEN: LIVER: Normal morphology. No significant difference of hepatic signal intensity between in and out of phase images. Several small T2 hyperintense nonenhancing hepatic cysts. BILE DUCTS: CBD 5 mm. There is no intra or extrahepatic biliary ductal dilatation. There is no filli ng defect, stricture, obstructing lesion or biliary wall thickening identified. GALLBLADDER: Unremarkable. PANCREAS: Unremarkable. Normal caliber pancreatic duct. SPLEEN: Within normal limits. ADRENAL GLANDS: Unremarkable. KIDNEYS: Within normal limits. No hydronephrosis. BOWEL: Normal caliber. PERITONEUM: No ascites or free air. No fluid collection. VASCULATURE: No abdominal aortic aneurysm. RETROPERITONEUM: Within normal limits. LYMPH NODES: Within normal limits. ABDOMINAL WALL: Unremarkable. MUSCULOSKELETAL: No suspicious osseous abnormality. Mild dextrocurvature of the thoracolumbar spine. IMPRESSION: 1. No evidence of biliary dilatation, stricture, filling defect, wall thickening or obstructing mass lesion. 2. Several small hepatic cysts redemonstrated. [facility], , 08/09/2024 2:23 PM
== END | disposition home or self-care (01) ==
LOC: RADMRIMAIN 09:44
PROVIDERS: ATTEND Internal Medicine
DX: K76.89 Other specified diseases of liver (principal); R74.01 Elevation of levels of liver transaminase levels
CPT/HCPCS: 74183; A9585